=== PATIENT | male | born 1960 | race Caucasian/White ===

== ENCOUNTER 2020-06-29 11:53 | Emergency (ER) | payer OTHER, SELFPAY ==
--- NOTE | ~2020-06-29 | XR_ITS ---
EXAMINATION: XR chest 2V DATE: 06/29/2020 12:12 INDICATION: Chest pain. TECHNIQUE: Frontal and lateral views of the chest were obtained. COMPARISON: CT abdomen and pelvis 01/07/16 FINDINGS: There is mild atelectasis in right lower lung zone. No pleural effusion or pneumothorax. Th e heart size is normal. IMPRESSION: 1. Mild atelectasis in right lower lung zone. Reviewed, dictated and finalized at location A.
--- NOTE | 2020-06-29 11:55 | ECG_ITS ---
Measurements Intervals [place] Rate: 63 P: 62 [place]: 170 QRS: -5 QRSD: 114 T: 34 QT: 358 QTc: 367 Interpretive Statements SINUS RHYTHM INTRAVENTRICULAR CONDUCTION DELAY BORDERLINE ECG Electronically Signed On 06-29-2020 18:05:52 CDT by Addison Lopez D.O.
[2020-06-29 11:56] VITALS: BP 153/108; PULSE 72; RESP 17; TEMP 36.4; O2SAT 99
[2020-06-29 12:03] VITALS: PULSE 67
[2020-06-29 12:21] LABS: Basophils Absolute Auto 0.1 K/mm3 (0.0-0.1); Basophils Percent Auto 0.8 % (0.2-1.2); Eosinophils Absolute Auto 0.3 K/mm3 (0-0.3); Eosinophils Percent Auto 3.4 % (0-4.4); Hematocrit 44.8 % (42.0-52.0); Hemoglobin 15.6 g/dL (14.0-18.0); Immature Granulocyte Absolute 0.03 K/mm3 (0.00-0.031); Immature Granulocyte Percent A 0.4 % (0-0.5); Lymphocytes Absolute Auto 1.81 K/mm3 (0.9-3.2); Mean Corpuscular HGB Conc 34.8 g/dl (32-36); Mean Corpuscular Hemoglobin 31.2 pg (26-34); Mean Corpuscular Volume 89.6 fl (80-100); Mean Platelet Volume 9.9 fl (7.4-10.4); Monocytes Absolute Auto 0.7 K/mm3 (0.1-0.6); Monocytes Percent Auto 8.9 % (2.6-8.5); Neutrophils Percent Auto 63.5 % (45.5-73.1); Platelet Count Result 214 k/mm3 (150-375); White Blood Count 7.9 K/mm3 (4.5-10.0)
[2020-06-29 12:33] LABS: Anion Gap 5 mmol/L (8-16); Blood Urea Nitrogen 19 mg/dL (9-20); Calcium 9.7 mg/dL (8.4-10.2); Carbon Dioxide 32 mmol/L (22-30); Chloride 104 mmol/L (98-107); Estimated CRCL calculation 117 ml/min; Estimated Glomerular Filt Rate > 60; Glucose 98 mg/dL (75-110); Potassium 3.9 mmol/L (3.4-5.0); Sodium 141 mmol/L (137-145)
[2020-06-29 12:35] LABS: Prothrombin Time 12.5 Seconds (11.1-14.7)
[2020-06-29 12:36] LABS: Partial Thromboplastin Time 27.1 SECONDS (22.3-36.8)
[2020-06-29 12:45] LABS: Troponin I < 0.012 ng/mL (0.000-0.034)
--- NOTE | 2020-06-29 12:57 | ED.CHESTPAIN ---
HPI - Chest Pain General Chief Complaint: Chest Pain Stated Complaint: chest pain Time Seen by Provider: 06/29/20 12:02 History of Present Illness HPI narrative: Patient is a 59-year-old male who presents ER with central chest discomfort. It began around 9 AM and felt like acid reflux. He took Tums and omeprazole without relief of his discomfort. It lasts about 30-40 seconds at a time and occasionally feels like a fullness. No associated symptoms. No modification with eating/drinking/exertion. No previous [place]. Related Data Home Medications Medication Instructions Recorded Confirmed lisinopril 20 mg PO DAILY 06/29/20 06/29/20 metoprolol tartrate 25 mg PO DAILY 06/29/20 06/29/20 Allergies Allergy/AdvReac Type Severity Reaction Status Date / Time No Known Allergies Allergy Verified 06/29/20 12:00 Review of Systems Review of Systems: All systems reviewed & are unremarkable except as noted in HPI and below Cardiovascular: Cardiovascular: Reports chest pain, Denies chest pain with activity, Denies radiating jaw, neck or arm pain and Denies dyspnea Respiratory: Respiratory: Denies cough, Denies pain on inspiration and Denies dyspnea Gastrointestinal: Gastrointestinal: Denies abdominal pain, Denies belching, Reports heartburn, Denies nausea and Denies vomiting PMFSH Past Medical History Medical History (Updated 06/29/20 @ 16:18 by Malcolm Amaya MD) Hypertension Surgical History Surgical History (Updated 06/29/20 @ 13:00 by Malcolm Amaya MD) History of bilateral knee replacement History of tonsillectomy Social History Social History (Updated 06/29/20 @ 13:01 by Malcolm Amaya MD) Smoking status: Former smoker Gender identity (if verbalized by the patient): Male Exam Narrative: Exam Narrative: GENERAL: Well-appearing, well-nourished, and in no acute distress. HEAD: Normocephalic, atraumatic. CHEST: Clear to auscultation. No respiratory distress. No discomfort with palpation of the chest. HEART: Regular rate and rhythm. Normal peripheral pulses. ABDOMEN: Soft, nontender, nondistended, normal active bowel sounds. EXTREMITIES: Normal range of motion. No edema. SKIN: Warm, dry, no rash. NEURO: Alert and oriented x3. PSYCH: Normal mood and affect. Course Course Emergency Course: Patient informed of results. Chest pain-free. Had a GI cocktail here that improves some symptoms. Troponin negative x2. Discussed with patient that I recommend follow-up with PCP and an outpatient stress test just for completeness sake. Recommend that if his symptoms are recurring return to the ER. Patient verbalized understanding. Vital Signs Vital signs: Vital Signs Temperature 97.6 F 06/29/20 11:56 Pulse Rate 72 06/29/20 11:56 Respiratory Rate 17 06/29/20 11:56 Blood Pressure 153/108 H 06/29/20 11:56 Pulse Oximetry 99 06/29/20 11:56 Temperature 97.6 F 06/29/20 11:56 Pulse Rate 62 06/29/20 15:13 Respiratory Rate 14 06/29/20 15:13 Blood Pressure 132/80 06/29/20 15:13 Pulse Oximetry 97 06/29/20 15:13 MDM - Chest Pain Lab Data Result diagrams: 06/29/20 12:04 06/29/20 12:04 Labs: Lab Results 06/29/20 06/29/20 06/29/20 Range/Units 12:04 12:04 12:04 WBC 7.9 (4.5-10.0) K/mm3 RBC 5.00 (4.6-6.20) M/mm3 Hgb 15.6 (14.0-18.0) g/dL Hct 44.8 (42.0-52.0) % MCV 89.6 (80-100) fl MCH 31.2 (26-34) pg MCHC 34.8 (32-36) g/dl RDW 13.0 (11.5-14.5) % Plt Count 214 (150-375) k/mm3 MPV 9.9 (7.4-10.4) fl Immature Gran % (Auto) 0.4 (0-0.5) % Neut % (Auto) 63.5 (45.5-73.1) % Lymph % (Auto) 23.0 (18.3-44.2) % [place] % (Auto) 8.9 H (2.6-8.5) % Eos % (Auto) 3.4 (0-4.4) % Baso % (Auto) 0.8 (0.2-1.2) % Lymph # (Auto) 1.81 (0.9-3.2) K/mm3 [place] # (Auto) 0.7 H (0.1-0.6) K/mm3 Eos # (Auto) 0.3 (0-0.3) K/mm3 Baso # (Auto) 0.1 (0.0-0.1) K/mm3 Abs Immat Gran (
[2020-06-29 13:00] VITALS: BP 148/88; PULSE 65; RESP 14; O2SAT 97
[2020-06-29] MEDS: BELLADONNA ALK/PHENOB ELIX 10 ML, MAG HYDROX/ALUMINUM HYD/SIMETH 30 ML, LIDOCAINE HCL 2... PO (13:07)
[2020-06-29 14:50] VITALS: BP 127/91; PULSE 64; RESP 16; O2SAT 100
[2020-06-29 15:13] VITALS: BP 132/80; PULSE 62; RESP 14; O2SAT 97
[2020-06-29 15:18] LABS: Troponin I 0.019 ng/mL (0.000-0.034)
[2020-06-29 16:32] VITALS: BP 147/100; PULSE 64; RESP 17; O2SAT 98
== END 2020-06-29 16:20 | disposition home or self-care (01) ==
PROVIDERS: General Practice; Emergency Provider Emergency Medicine; PCP Family Medicine
DX: R07.9 Chest pain, unspecified (principal); I10 Essential (primary) hypertension; Z96.653 Presence of artificial knee joint, bilateral; Z87.891 Personal history of nicotine dependence; I45.9 Conduction disorder, unspecified
CPT/HCPCS: 36415; 71046; 80048; 84484; 85025; 85610; 85730; 93005; 99284; A9270

== ENCOUNTER → 2020-11-13 08:16 | Outpatient (CLI) | payer OTHER, SELFPAY ==
--- NOTE | ~2020-11-13 | CT_ITS ---
EXAMINATION: CT abdomen pelvis wo con DATE: 11/13/2020 08:43 INDICATION: Calculus of kidney. TECHNIQUE: Computed tomography (CT) of the abdomen and pelvis was performed without intravenous contr ast. Automated exposure control and iterative reconstruction technique were employed. The dose-length product was 1086.23 mGy-cm. COMPARISON: CT abdomen and pelvis 01/07/16 FINDINGS: The visualized portions of the lung bases demonstrate minimal atelectasis. Again seen is a 5 mm nodule in right lower lobe, likely benign. No pleural effusion. The heart size is normal. No per icardial effusion. There is diffuse hepatic steatosis. The gallbladder, spleen, pancreas, and adrenal glands are normal. There are 6 stones in right kidney measuring up to 4 mm. There is an 11 mm stone in left kidney. The prostate is mildly enlarged. There are no dilated loops of bowel. The appendix is normal. There are no pathologically enlarged lymph nodes. There is no free intraperitoneal fluid. Th ere is severe lumbar spondylosis. There are bridging endplate osteophytes at multiple levels in the t horacic spine, consistent with diffuse idiopathic skeletal hyperostosis (DISH). IMPRESSION: 1. Bilateral nonobstructing kidney stones. Reviewed, dictated and finalized at location A. [employer]
--- NOTE | ~2020-11-13 | XR_ITS ---
EXAMINATION: XR abdomen/kub 1V DATE: 11/13/2020 08:43 INDICATION: Calculus of kidney. TECHNIQUE: A supine view of the abdomen on 2 radiographs was obtained. COMPARISON: CT abdomen and pelvis 11/13/2020 FINDINGS: There are no dilated loops of bowel. There is an 11 mm stone in left kidney. Right kidney i s obscured by bowel. There are vascular calcifications in the pelvis. IMPRESSION: 1. 11 mm left kidney stone. Reviewed, dictated and finalized at location A. TER'S ASSISTANT IMPRESSION: 1. 11 mm left kidney stone.
== END ==
PROVIDERS: Visit Provider Urology
DX: N20.0 Calculus of kidney (principal)
CPT/HCPCS: 74018; 74176

== ENCOUNTER 2020-12-05 13:03 | Outpatient (CLI) | payer OTHER, SELFPAY ==
[2020-12-05 14:04] LABS: INR 0.9; Prothrombin Time 12.2 Seconds (11.1-14.7)
[2020-12-05 14:05] LABS: Partial Thromboplastin Time 27.1 SECONDS (22.3-36.8)
[2020-12-05 14:06] LABS: Anion Gap 6 mmol/L (8-16); Blood Urea Nitrogen 15 mg/dL (9-20); Calcium 9.1 mg/dL (8.4-10.2); Carbon Dioxide 33 mmol/L (22-30); Chloride 102 mmol/L (98-107); Estimated Glomerular Filt Rate > 60; Glucose 96 mg/dL (75-110); Sodium 141 mmol/L (137-145)
== END 2020-12-05 13:04 | disposition home or self-care (01) ==
PROVIDERS: Anesthesiology; PCP Family Medicine; Visit Provider Urology
DX: N20.0 Calculus of kidney (principal); Z79.899 Other long term (current) drug therapy; Z01.818 Encounter for other preprocedural examination
CPT/HCPCS: 36415; 80048; 85610; 85730; 87086

== ENCOUNTER → 2020-12-10 00:35 | Outpatient (CLI) | payer OTHER, SELFPAY ==
[2020-12-11 00:53] LABS: SARS-CoV-2 RNA PCR Negative
== END ==
PROVIDERS: PCP Family Medicine; Visit Provider Urology
DX: Z01.812 Encounter for preprocedural laboratory examination (principal); Z20.822 Contact with and (suspected) exposure to COVID-19
CPT/HCPCS: C9803; U0003; U0005

== ENCOUNTER 2020-12-13 04:21 | Day surgery (SDC) | payer OTHER, SELFPAY ==
[2020-12-05 12:26] VITALS: BMI 39.0
[2020-12-13] VITALS (18 sets, daily range): BP systolic 139–189; BP diastolic 85–118; PULSE 72–108; RESP 16–22; TEMP 36.4–36.6; O2SAT 95–100; BMI 39.2
--- NOTE | ~2020-12-13 | XR_ITS ---
EXAMINATION: XR abdomen/kub 1V EXAM DATE: 12/13/2020 13:29 INDICATION: S/P ESWL, L stent placement. Abdominal pain. TECHNIQUE: Frontal projection(s) of the abdomen for interpretation. Comparison is made to prior exami nation from earlier same date. FINDINGS: Patient slightly rotated. There is been interval insertion of a left-sided double-J uretera l stent overlying expected position. Again there is approximately 1 cm left inferior calyceal stone. Nonobstructive bowel gas pattern. IMPRESSION: Left nephrolithiasis. Stent overlying expected position. Reviewed, dictated and finalized at location A.
--- NOTE | ~2020-12-13 | XR_ITS ---
EXAMINATION: XR abdomen/kub 1V EXAM DATE: 12/13/2020 07:50 INDICATION: For left-sided lithotripsy. TECHNIQUE: Frontal projection of the upper abdomen, frontal projection lower abdomen/pelvis for inter pretation. Comparison is made to prior examination from 11/13/2020. FINDINGS: Approximately 1 cm dense left inferior calyceal stone reidentified. No other suspicious roro cific densities. Nonobstructive bowel gas pattern. Large thoracic and lumbar bridging endplate osteop hytes. IMPRESSION: Left nephrolithiasis. Reviewed, dictated and finalized at location A. IMPRESSION: Left nephrolithiasis.
--- NOTE | 2020-12-13 07:57 | WPDANESEPPF ---
Anes - Initial Pre Proc Eval Procedure: Operation Date: 12/13/20 09:30 Proposed Procedures p Cystoscopy, Left Retrograde Pyelogram, Left Stent Placement - Rick Rodriguze MD s Left Renal Extracorporeal Shock Wave Lithotripsy - Rick Rodriguez MD Date/Time: 12/13/20 07:57 Surgeon: Rick Rodriguez MD Pre Op Diagnosis: Left Renal Stone Patient Data Age: 60 Gender: M Height: 1.8 m Weight: 127 kg Allergies Allergy/AdvReac Type Severity Reaction Status Date / Time No Known Allergies Allergy Verified 12/13/20 07:56 Home Medications Medication Instructions Recorded Confirmed Type metoprolol tartrate 25 mg PO DAILY 06/29/20 12/05/20 History glucos sul [id number]-Mn 1 cap PO DAILY 12/05/20 12/05/20 History [Glucosamine Chondroitin] ibuprofen 600 mg PO TID PRN 12/05/20 12/05/20 History lisinopril-hydrochlorothiazide 1 tablet PO DAILY 12/05/20 12/05/20 History potassium citrate 10 meq PO DAILY 12/05/20 12/05/20 History Patient hx anesthesia problems: none Family hx anesthesia problems: none PMFSH Past Medical History Medical History (Updated 12/13/20 @ 08:08 by Pedrito Montana MD) Hypertension Obesity Osteoarthritis Surgical History Surgical History (Updated 06/29/20 @ 13:00 by Malcolm Amaya MD) History of bilateral knee replacement History of tonsillectomy Social History Social History (Updated 06/29/20 @ 13:01 by Malcolm Amaya MD) Years smoked: 10 Smoking status: Former smoker Smoking end date: 09/13/07 Alcohol intake: current Drinks per week: 2 Substance use: never Substance use type: does not use Living arrangements: with family Gender identity (if verbalized by the patient): Male Spiritual care concerns: No Anes - Eval Final PreProcedure Day of Procedure 12/13/20 07:57 Patient weight: obese Heart: regular rate and rhythm Lungs: clear to auscultation and normal air movement Airway: Mallampati scale class II Neurological: alert and oriented Last oral intake: >/= 8 hours ASA classification: III Emergent: no Anesthetic plan: proceed Anesthesia type and monitoring: general LMA Informed Consent: The patient's anesthetic plan and its attendant risks and benefits were discussed with the patient/family/POA. Questions were solicited and answers provided to the satisfaction of the patient/family/POA.
--- NOTE | 2020-12-13 08:12 | SUR.PREOP ---
NOTIFIED DR TOTH THAT PT DID NOT TAKE HIS METOPROL FOR 36 HOURS. TAKES AT HS. LAST DOSE WAS 12/11/20 AT HS.
--- NOTE | 2020-12-13 08:15 | WPDHPUPDATE1 ---
History and Physical Update Update Date/Time: 12/13/20 08:15 History and Physical has been reviewed, including an updated exam of the patient. There are NO changes in the patient's condition. Risks, benefits, and alternatives have been discussed and questions answered. Patient agrees to proceed with procedure. Proceed with cystoscopy, left retrograde pyelogram, left ureteral stent placement, left renal ESWL
[2020-12-13] MEDS: LACTATED RINGERS 1,000 ML 30 ML IV CONT ×2 (08:24→13:00)
[2020-12-13] MEDS: ceFAZolin 2 GM/D5W 50 ML 2 GM/50 ML BAG IVPB (09:21)
--- NOTE | 2020-12-13 10:04 | P.OP_ITS ---
Procedure Note - Detailed Date of procedure: 12/13/20 Pre-op diagnosis: Left Renal Stone Post-op diagnosis: same Procedure performed: Cystoscopy, left retrograde pyelogram, left ureteral stent placement 4.8 Swedish contour, left renal ESWL 12 mm stone Description of procedure: Patient is taken the operative suite and correctly identified. Once anesthesia was obtained he was prepped draped usual sterile fashion. Sixteen Swedish flexible scope was inserted in bladder in direct vision. There were no tumors noted. The left ureteral orifice was cannulated with a guidewire. A [place] catheter was passed over the wire. Pyelogram was then performed. It was noted that patient has a lower pole stone with a fairly long narrow infundibulum to it. We then placed a tenXer wire through the [place] catheter. 4.8 Swedish contour stent was then placed with the proximal end coiled in the renal pelvis and the distal end in the bladder. Patient was then reposition. Two thousand five hundred shocks were given to the stone. Patient tolerated procedure well without complications and was taken recovery room stable condition. If the patient fails to pass any fragments then he may benefit most likely from a percutaneous nephrolithotomy given the long narrow infundibulum of the lower pole. Anesthesia: GLMA Surgeon: Rick Rodriguez MD Drains: Yes Packing: No Pathology: none sent Complications: No immediate complications Condition: stable
[2020-12-13] MEDS: fentaNYL CITRATE INJ (*CRX) 100 MCG/2 ML VIAL 25 MCG IV PUSH ×7 (10:34→13:28)
[2020-12-13] MEDS: oxyCODONE HCL (*CRX) 5 MG TAB IR PO (11:20)
--- NOTE | 2020-12-13 11:56 | SUR.PHASEII ---
1130- Call to Dr. Montana for patient's elevated BP 173/100 with HR in 70's. Patient with known HTN. No answer at this time. Will continue to monitor. 1155- Second call to Dr. Montana to obtain orders and notify him of patient's BP that remains elevated 177/106 with HR 74. No answer from Dr. Montana at this time.
--- NOTE | 2020-12-13 11:59 | SUR.PHASEII ---
1158- Made Dr. Duran aware of patient's elevated BP 177/106 with HR 74 with known HTN. No medications taken today because patient takes his antihypertensives at night. Orders obtained for Labetolol 5MG IVP.
[2020-12-13] MEDS: LABETALOL HCL INJ 100 MG/20 ML VIAL IV PUSH (12:08)
[2020-12-13] MEDS: OXYBUTYNIN CHLORIDE 5 MG TABLET PO (12:40)
--- NOTE | 2020-12-13 13:15 | SUR.PHASEII ---
1315- Dr. Rodriguez rounded on patient in outpatient recovery room 15 and reported to him patient with 51mL's of urine in bladder noted on bladder scan. Patient remains in pain and just given 25MCG of fentanyl IVP. Per Dr. Rodriguez place orders for KUB at this time.
[2020-12-13] MEDS: HYDROmorphone HCL INJ (*CRX) 1 MG/ML SYR 0.25 MG IV PUSH ×8 (13:40→15:06)
--- NOTE | 2020-12-13 15:14 | SUR.PHASEII ---
1513- Call to Dr. Duran to obtain additional orders for pain control and made aware patient's BP remains elevated with his pain. Patient has received max dosing of dilaudid 2MG IVP and 175MCG Fentanyl. Orders received for 2.5MG IVP valium once and Demerol 50MG IVP once if patient remains in pain. Will continue to monitor.
[2020-12-13] MEDS: diazePAM INJ (*CRX) 10 MG/2 ML SYRINGE 2.5 MG IV PUSH (15:24)
--- NOTE | 2020-12-13 15:35 | SUR.PHASEII ---
1535- Call to Dr. Rodriguez to update him on patient's status at this time. Patient remaining with pain 6/10 after pain medications and IVP Valium 2.5MG. Awaiting call back at this time. 1544- 30MG IVP Toradol orders obtained from Dr. Rodriguez at this time.
[2020-12-13] MEDS: KETOROLAC 30 MG/ML VIAL (*BKC) IV PUSH (15:47)
--- NOTE | 2020-12-13 16:18 | SUR.PHASEII ---
1618- Patient assisted with ambulation to restroom at this time.
== END 2020-12-13 16:40 | disposition home or self-care (01) ==
PROVIDERS: PCP Family Medicine; Visit Provider Urology
PROC: (CPT 52352; principal; 2020-12-13 09:30)
PROC: (CPT 50590; 2020-12-13 09:30)
DX: N20.0 Calculus of kidney (principal); M19.90 Unspecified osteoarthritis, unspecified site; Z87.891 Personal history of nicotine dependence; E66.9 Obesity, unspecified; Z68.39 Body mass index [BMI] 39.0-39.9, adult; I10 Essential (primary) hypertension
CPT/HCPCS: 50590; 52332; 36415; 74018; 80048; 85610; 85730; 87086; A9270; C1758; C1769; C2617; C9803; J0690; J1100; J1170; J1885; J2405; J2704; J3010; J3360; J7030; J7120; Q9966; U0003; U0005

== ENCOUNTER 2020-12-13 22:10 | Observation (INO) | payer OTHER, SELFPAY ==
[2020-12-13] VITALS (13 sets, daily range): BP systolic 159–162; BP diastolic 103–110; PULSE 108–139; RESP 19–25; TEMP 36.8; O2SAT 93–100
--- NOTE | 2020-12-13 22:32 | ED.ABDPAIN ---
HPI - Abdominal Pain General Chief Complaint: Abdominal Pain Stated Complaint: llq abd pain Time Seen by Provider: 12/13/20 22:26 Source: patient, family and RN notes reviewed Limitations: no limitations History of Present Illness HPI narrative: Patient is 60 years old white male presented with severe pain left abdomen just below left thoracic cage. Started immediately after having lithotripsy at 9 AM today, was in severe pain and stayed until 5 PM to control his pain. Patient got discharged at 5 PM, back to the emergency room 4 hours later because could not tolerate the pain, although been discharged on hydrocodone. Patient did not urinate since leaving the hospital. Related Data Home Medications Medication Instructions Recorded Confirmed metoprolol tartrate 25 mg PO DAILY 06/29/20 12/13/20 Glucosamine Chondroitin 1 cap PO DAILY 12/05/20 12/13/20 ibuprofen 600 mg PO TID PRN 12/05/20 12/13/20 lisinopril-hydrochlorothiazide 1 tablet PO DAILY 12/05/20 12/13/20 potassium citrate 10 meq PO DAILY 12/05/20 12/13/20 Allergies Allergy/AdvReac Type Severity Reaction Status Date / Time No Known Allergies Allergy Verified 12/13/20 07:56 Review of Systems Review of Systems: Narrative: CONSTITUTIONAL: Denies fever, chills, or sweats. EYES: Denies visual changes, redness, or discharge. ENT: Denies rhinorrhea, congestion, sore throat, or otalgia. CARDIOVASCULAR: Denies chest pain, palpitations, or edema. RESPIRATORY: Denies cough or dyspnea. GASTROINTESTINAL: Denies abdominal pain, nausea, vomiting, or diarrhea. GENITOURINARY: Denies dysuria or hematuria. SKIN: Denies rash or itching. MUSCULOSKELETAL: Denies back pain, joint pain, or myalgia. NEUROLOGIC: Denies headache, numbness, or weakness. PSYCHIATRIC: Denies anxiety or depression. [facility] Past Medical History Medical History Hypertension Obesity Osteoarthritis Surgical History Surgical History History of bilateral knee replacement History of tonsillectomy Social History Social History Years smoked: 10 Smoking status: Former smoker Smoking end date: 09/13/07 Alcohol intake: current Drinks per week: 2 Substance use: never Substance use type: does not use Gender identity (if verbalized by the patient): Male Spiritual care concerns: No Course Consultations Consultation #1: dr [email or web address] Accepted patient admission, recommended not to get any imaging or any labs. Patient had x-ray post lithotripsy. Date: 12/13/20 Time: 23:04 Vital Signs Vital signs: Vital Signs Temperature 36.8 C 12/13/20 22:16 Pulse Rate 114 H 12/13/20 22:16 Respiratory Rate 22 H 12/13/20 22:16 Blood Pressure 159/103 H 12/13/20 22:16 Pulse Oximetry 97 12/13/20 22:16 Temperature 36.8 C 12/13/20 22:16 Pulse Rate 114 H 12/13/20 22:16 Respiratory Rate 22 H 12/13/20 22:16 Blood Pressure 159/103 H 12/13/20 22:16 Pulse Oximetry 97 12/13/20 22:16 Discharge Plan Discharge Clinical Impression: Kidney stone on left side, Status post laser lithotripsy of ureteral calculus Patient Disposition: Still a Patient Condition: Stable Prescriptions: No Action metoprolol tartrate 25 mg Tablet 25 mg PO DAILY RF: 0 potassium citrate 10 mEq (1,080 mg) tablet extended release 10 meq PO DAILY RF: 0 ibuprofen 200 mg Tablet 600 mg PO TID PRN (Reason: Pain) RF: 0 Hold Instructions: Resume on 12/16/20. lisinopril-hydrochlorothiazide 10-12.5 mg tablet 1 tablet PO DAILY RF: 0 Glucosamine Chondroitin 550-30-1 mg Capsule 1 cap PO DAILY RF: 0 Follow-up/Referrals: Bebeto,Deacon Mattson MD [Primary Care Provider] -
[2020-12-13 22:47] LABS: Basophils Percent Auto 0.1 % (0.2-1.2); Hematocrit 41.8 % (42.0-52.0); Hemoglobin 14.1 g/dL (14.0-18.0); Immature Granulocyte Absolute 0.05 K/mm3 (0.00-0.031); Immature Granulocyte Percent A 0.4 % (0-0.5); Lymphocytes Absolute Auto 0.59 K/mm3 (0.9-3.2); Lymphocytes Percent Auto 4.2 % (18.3-44.2); Mean Corpuscular HGB Conc 33.7 g/dl (32-36); Mean Corpuscular Hemoglobin 30.2 pg (26-34); Mean Corpuscular Volume 89.5 fl (80-100); Mean Platelet Volume 9.6 fl (7.4-10.4); Monocytes Absolute Auto 1.1 K/mm3 (0.1-0.6); Monocytes Percent Auto 7.6 % (2.6-8.5); Neutrophils Absolute Auto 12.5 K/mm3 (1.3-6.7); Neutrophils Percent Auto 87.7 % (45.5-73.1); Platelet Count Result 235 k/mm3 (150-375); Red Blood Count 4.67 M/mm3 (4.6-6.20); Red Cell Distribution Width 13.1 % (11.5-14.5); White Blood Count 14.2 K/mm3 (4.5-10.0)
[2020-12-13] MEDS: ONDANSETRON INJ 4 MG/2 ML VIAL IV PUSH (23:14)
[2020-12-13] MEDS: HYDROmorphone HCL INJ (*CRX) 1 MG/ML SYR 0.5 MG IV PUSH ×2 (23:15→23:58)
[2020-12-13 23:57] LABS: Alanine Aminotransferase 21 U/L (4-50); Alkaline Phosphatase 77 U/L (38-126); Anion Gap 9 mmol/L (8-16); Aspartate Amino Transferase 24 U/L (17-59); Bilirubin,Total 0.5 mg/dL (0.2-1.3); Blood Urea Nitrogen 18 mg/dL (9-20); Calcium 8.8 mg/dL (8.4-10.2); Carbon Dioxide 23 mmol/L (22-30); Chloride 102 mmol/L (98-107); Estimated CRCL calculation 81 ml/min; Estimated Glomerular Filt Rate > 60; Glucose 196 mg/dL (75-110); Lipase 79 U/L (23-300); Potassium 4.3 mmol/L (3.4-5.0); Sodium 134 mmol/L (137-145)
[2020-12-14] VITALS: PULSE 133; RESP 20; O2SAT 97
[2020-12-14 00:01] VITALS: BP 139/99; PULSE 130; RESP 20; O2SAT 97
[2020-12-14 00:03] VITALS: BP 137/97; PULSE 131; RESP 15; O2SAT 97
[2020-12-14 00:12] LABS: Add Urine Microscopic? YES; Appearance Urine Cloudy (Clear); Bilirubin Urine Negative (Negative); Blood Urine 3+ (Negative); Color Urine Brown (Yellow); Glucose Urine UA 2+ mg/dL (Negative); Ketones Urine Negative (Negative); Leukocyte Esterase Ur Negative LEU/UL (Negative); Mucus Urine Heavy /lpf; Nitrate Urine Negative (Negative); Protein Urine 2+ mg/dL (Negative); RBC Urine >75 /hpf (0-2); Specific Grav Ur 1.031 (1.001-1.035); Urobilinogen Urine Negative mg/dL (<2.0); WBC Urine 16-20 /hpf
--- NOTE | 2020-12-14 06:24 | ADMGEN ---
This patient, Ifeoma Martinez, was admitted to 3 [facility] [place] [facility] Surg Room 327-01. Patient/family oriented to hospital policies and general routines including ID bracelet, bed and alarms, visiting hours, pain management, procedures, bathroom and other care routines, personal items, smoking policy, room service/diet, and visiting hours. Information on how to activate the Rapid Response Team has been discussed. Patient/Family are encouraged to report perceived risks to care and to ask questions if they do not understand what they are told or what they should do. Patient arrived at 0115. He stated that his pain had improved considerably since the ER though he continued to complain of upper L abd pain. His memory was intact and he gave a good health history and confirmed his medications from memory. He has not ambulated since coming to the hospital r/t severe pain with movement. Hospital policy, call light use, pain reporting, and importance of calling for assistance were all discussed and questions answered.
[2020-12-14 08:00] VITALS: PULSE 107; RESP 18; O2SAT 94
[2020-12-14] MEDS: HYDROmorphone HCL INJ (*CRX) 1 MG/ML SYR 0.5 MG IV PUSH ×2 (08:22→08:45)
[2020-12-14 08:23] VITALS: BMI 40.7
[2020-12-14 10:12] VITALS: PULSE 107; RESP 18; O2SAT 94
--- NOTE | 2020-12-14 11:15 | PM.IMHP ---
H&P: HPI History of Present Illness Date/Time: 12/14/20 11:15 Chief Complaint: left flank pain Narrative: 61M s/p left stent and ESWL yesterday by dr montes. had a lot of pain postop but was able to be controlled and he was discharged. he came back to ED around 2300 last night with recurrent severe pain and was admitted for pain control. pain this morning is better. KUb yesterday showed stent in appropriate position with persistent lower pole calcifications but this was immediately after treatment. Review of Systems Review of Systems: All systems reviewed & are unremarkable except as noted in HPI and below PMFSH Past Medical History Medical History Hypertension Obesity Osteoarthritis Surgical History Surgical History History of bilateral knee replacement History of tonsillectomy Social History Social History Years smoked: 10 Smoking status: Former smoker Alcohol intake: current Drinks per week: 2 Substance use: never Substance use type: does not use Gender identity (if verbalized by the patient): Male Spiritual care concerns: No Meds Home Medications and Allergies Home Medications Medication Instructions Recorded Confirmed Type metoprolol tartrate 25 mg PO DAILY 06/29/20 12/14/20 History Glucosamine Chondroitin 1 cap PO DAILY 12/05/20 12/14/20 History ibuprofen 600 mg PO TID PRN 12/05/20 12/14/20 History lisinopril-hydrochlorothiazide 1 tablet PO DAILY 12/05/20 12/14/20 History potassium citrate 10 meq PO DAILY 12/05/20 12/14/20 History Allergies Allergy/AdvReac Type Severity Reaction Status Date / Time No Known Allergies Allergy Verified 12/13/20 07:56 Vital Signs Vital Signs - 24 hr 12/13/20 22:15 12/13/20 22:16 12/13/20 22:30 Temperature 36.8 C Pulse Rate 122 H 116 H 108 H Respiratory Rate 20 22 H 24 H Blood Pressure 159/103 H Pulse Oximetry 97 97 98 12/13/20 22:45 12/13/20 22:46 12/13/20 23:00 Temperature Pulse Rate 112 H 114 H 111 H Respiratory Rate 23 H 23 H 23 H Blood Pressure 162/110 H Pulse Oximetry 95 96 95 12/13/20 23:01 12/13/20 23:15 12/13/20 23:16 Temperature Pulse Rate 126 H 115 H 117 H Respiratory Rate 21 H 25 H 25 H Blood Pressure Pulse Oximetry 97 96 96 12/13/20 23:30 12/13/20 23:31 12/13/20 23:45 Temperature Pulse Rate 117 H 118 H 128 H Respiratory Rate 19 19 24 H Blood Pressure Pulse Oximetry 93 93 98 12/13/20 23:47 12/14/20 00:00 12/14/20 00:01 Temperature Pulse Rate 139 H 133 H 130 H Respiratory Rate 20 20 Blood Pressure 139/99 H Pulse Oximetry 100 97 97 12/14/20 00:03 12/14/20 08:00 12/14/20 10:12 Temperature Pulse Rate 131 H 107 H 107 H Respiratory Rate 15 18 18 Blood Pressure 137/97 H Pulse Oximetry 97 94 94 Exam Const: General: cooperative and comfortable HENMT: Head: normal to inspection, normocephalic and atraumatic Eyes: General: appearance normal, both eyes and all related structures Visual Key: normal visual key by confrontation Resp: Effort & Inspection: normal respiratory effort and able to speak in complete sentences : Male General Exam: Yes other (left hydrocele, non tender) H&P: Results Labs Labs: Short CBC 12/13/20 Range/Units 22:42 WBC 14.2 H (4.5-10.0) K/mm3 Hgb 14.1 (14.0-18.0) g/dL Hct 41.8 L (42.0-52.0) % Plt Count 235 (150-375) k/mm3 BMP 12/13/20 23:40 Sodium 134 L Potassium 4.3 Chloride 102 Carbon Dioxide 23 BUN 18 Creatinine 1.20 Glucose 196 H Calcium 8.8 Liver Function 12/13/20 Range/Units 23:40 Total Bilirubin 0.5 (0.2-1.3) mg/dL AST 24 (17-59) U/L ALT 21 (4-50) U/L Alkaline Phosphatase 77 (38-126) U/L Albumin 4.0 (3.5-5.1) g/dL Urine 12/13/20 Range/Units 23:50 Urine Color Br
[2020-12-14] MEDS: TAMSULOSIN HCL 0.4 MG CAPSULE PO (12:24)
[2020-12-14 14:00] VITALS: BP 144/87; PULSE 90; RESP 18; TEMP 36.8; O2SAT 95
--- NOTE | 2020-12-14 17:58 | PC.NURSE ---
1100 BLADDER SCANNED PT PT STATES HE FEELS LIKE HE HAS TO GO, 30CC NOTED
== END 2020-12-14 17:10 | disposition home or self-care (01) ==
LOC: ANHED 23:05 → ANH3MEDSUR 12-14 00:28
PROVIDERS: Admitting Provider Urology; Emergency Provider Emergency Medicine; PCP Family Medicine; Visit Provider Urology
DX: N20.0 Calculus of kidney (principal); R10.9 Unspecified abdominal pain; Z87.442 Personal history of urinary calculi; Z96.653 Presence of artificial knee joint, bilateral; Z87.891 Personal history of nicotine dependence
CPT/HCPCS: 36415; 74018; 80048; 80053; 81001; 83690; 85025; 85610; 85730; 87086; 96374; 96375; 96376; 99285; A9270; C1758; C1769; C2617; C9803; G0378; J0131; J0690; J1100; J1170; J1885; J2405; J2704; J3010; J3360; J7030; J7120; Q9966; U0003; U0005

== ENCOUNTER 2020-12-15 11:52 | Inpatient (IN) | payer OTHER, SELFPAY ==
[2020-12-15] VITALS (54 sets, daily range): BP systolic 88–124; BP diastolic 38–78; PULSE 72–122; RESP 14–26; TEMP 35.5–37.2; O2SAT 87–98; BMI 40.9
--- NOTE | ~2020-12-15 | XR_ITS ---
XR chest 2V DATE: 12/15/2020 13:10 INDICATION: Low oxygen saturation. History of hypertension. Recent lithotripsy. Low back pain. TECHNIQUE: PA and lateral views COMPARISON: None FINDINGS: Prominent bilateral lower lung atelectasis and possible infiltrates. There are relatively l ow lung volumes compared to 06/29/2020. Normal heart size. No hilar or mediastinal enlargement. No pleural effusion or pulmonary vascular con gestion or pneumothorax. Diffuse idiopathic skeletal hyperostosis of the thoracic spine. IMPRESSION: Prominent bilateral lower lung atelectasis and possible infiltrate Reviewed, dictated and finalized at location A.
--- NOTE | ~2020-12-15 | CT_ITS ---
EXAMINATION: CT abdomen pelvis wo con DATE: 12/15/2020 14:40 INDICATION: Abdominal pain. TECHNIQUE: Computed tomography (CT) of the abdomen and pelvis was performed without intravenous contr ast. Automated exposure control and iterative reconstruction technique were employed. The dose-length product was 1573.09 mGy-cm. COMPARISON: CT abdomen and pelvis 12/10/2020 FINDINGS: The visualized portions of the lung bases demonstrate trace right and small left pleural ef fusions. There are airspace opacities in the lungs with a dependent predominance, likely atelectasis. The heart size is normal. There are coronary artery calcifications. No pericardial effusion. Partial ly visualized is right-sided gynecomastia. There is diffuse hepatic steatosis. The gallbladder and sp martinez are normal. There is a punctate calcification in the pancreas. The adrenal glands are normal. Th ere are approximately 6 stones in right kidney measuring up to 3 mm. There is a large acute subcapsul ar hematoma involving left kidney. There is a smaller volume of acute hematoma in the bilateral retro peritoneum and extraperitoneal pelvis, left worse than right. There is a small volume of hematoma in left paracolic gutter and in the left inguinal hernia. There are at least 5 stones and/or clusters of stones in left kidney measuring up to 11 mm. There is a left internal ureteral stent in expected pos ition. There is a punctate stone adjacent to the stent proximally in the renal pelvis. The prostate i s mildly enlarged. There are no pathologically enlarged lymph nodes. There is severe lumbar spondylos is. There are bridging endplate osteophytes at multiple levels in the thoracic spine, consistent with diffuse idiopathic skeletal hyperostosis (DISH). IMPRESSION: 1. Large acute subcapsular hematoma of left kidney with extension into the surrounding retroperitoneu m. 2. Bilateral obstructing kidney stones. Left internal ureteral stent in expected position. Reviewed, dictated and finalized at location A. IMPRESSION: 1. Large acute subcapsular hematoma of left kidney with extension into the surr ounding retroperitoneum. 2. Bilateral obstructing kidney stones. Left internal ureteral stent in expecte d position.
--- NOTE | ~2020-12-15 | XR_ITS ---
EXAMINATION: XR chest 1V portable DATE: 12/16/2020 05:44 INDICATION: Oxygen desaturation. TECHNIQUE: A single frontal view of the chest was obtained. COMPARISON: Chest 2 views 12/15/2020, CT abdomen and pelvis 12/15/2020 FINDINGS: The lung volumes are small. There are airspace opacities in the lower lung zones, likely at electasis. No pleural effusion or pneumothorax. The heart size is normal. IMPRESSION: 1. Small lung volumes with stable atelectasis in the lower lung zones. Reviewed, dictated and finalized at location A.
--- NOTE | 2020-12-15 12:15 | ECG_ITS ---
Measurements Intervals [place] Rate: 80 P: -5 [place]: 117 QRS: 8 QRSD: 115 T: 31 QT: 396 QTc: 457 Interpretive Statements SINUS RHYTHM WITH SHORT [place] INTERVAL INTRAVENTRICULAR CONDUCTION DELAY EARLY PRECORDIAL R/S TRANSITION BORDERLINE ST-T WAVE ABNORMALITY- INF/HIGH LAT LEADS BORDERLINE ECG Electronically Signed On 12-15-2020 12:44:37 CDT by Addison Lopez D.O.
[2020-12-15 12:32] LABS: Basophils Percent Auto 0.2 % (0.2-1.2); Eosinophils Absolute Auto 0.1 K/mm3 (0-0.3); Eosinophils Percent Auto 0.3 % (0-4.4); Hematocrit 25.9 % (42.0-52.0); Hemoglobin 9.1 g/dL (14.0-18.0); Immature Granulocyte Absolute 0.07 K/mm3 (0.00-0.031); Immature Granulocyte Percent A 0.5 % (0-0.5); Lymphocytes Absolute Auto 1.31 K/mm3 (0.9-3.2); Lymphocytes Percent Auto 8.7 % (18.3-44.2); Mean Corpuscular HGB Conc 35.1 g/dl (32-36); Mean Corpuscular Volume 88.1 fl (80-100); Mean Platelet Volume 9.8 fl (7.4-10.4); Monocytes Absolute Auto 1.4 K/mm3 (0.1-0.6); Monocytes Percent Auto 9.5 % (2.6-8.5); Neutrophils Absolute Auto 12.2 K/mm3 (1.3-6.7); Neutrophils Percent Auto 80.8 % (45.5-73.1); Platelet Count Result 229 k/mm3 (150-375); Red Blood Count 2.94 M/mm3 (4.6-6.20); Red Cell Distribution Width 13.4 % (11.5-14.5); White Blood Count 15.1 K/mm3 (4.5-10.0)
[2020-12-15 12:44] LABS: Alanine Aminotransferase 15 U/L (4-50); Albumin Level 3.3 g/dL (3.5-5.1); Alkaline Phosphatase 54 U/L (38-126); Anion Gap 7 mmol/L (8-16); Aspartate Amino Transferase 22 U/L (17-59); Bilirubin,Total 0.5 mg/dL (0.2-1.3); Blood Urea Nitrogen 50 mg/dL (9-20); Calcium 7.8 mg/dL (8.4-10.2); Carbon Dioxide 26 mmol/L (22-30); Chloride 93 mmol/L (98-107); Estimated CRCL calculation 27 ml/min; Estimated Glomerular Filt Rate 17; Glucose 112 mg/dL (75-110); Potassium 3.8 mmol/L (3.4-5.0); Sodium 126 mmol/L (137-145)
[2020-12-15 12:55] LABS: Troponin I 0.032 ng/mL (0.000-0.034)
[2020-12-15 13:04] LABS: Lactic Acid Reflex 1.5 mmol/L (0.7-2.1)
[2020-12-15 13:18] LABS: NT Pro B Type Natriuretic Pept 285 PG/ML (5-100)
[2020-12-15] MEDS: LACTATED RINGERS 1,000 ML 999 ML IV CONT ×3 (13:22→18:42)
[2020-12-15 14:37] LABS: Immature Reticulocyte Fraction 23.9 % (3.0-15.9); Reticulocyte Hemoglobin Conten 32.2 pg (28.2-35.7); Reticulocyte Percent 2.38 % (0.7-4.3); Reticulocytes Absolute 0.07 B/L (32.2-175.7)
--- NOTE | 2020-12-15 14:55 | ED.RECABL ---
HPI - Recheck/Abnormal Lab/Rx General Chief Complaint: Recheck/Abnormal Lab/Rx Stated Complaint: low blood pressure Time Seen by Provider: 12/15/20 12:17 Source: patient and family Mode of arrival: ambulatory Limitations: no limitations History of Present Illness HPI narrative: 60-year-old male Hypertension and of kidney stones He was here Wednesday for lithotripsy and stent placement He had to return to the hospital Wednesday night and was hospitalized until yesterday evening due to persisting pain Today he felt weak and dizzy and checked his blood pressure at home and it was low; typically his blood pressure runs high and he takes blood pressure medication He has not had a fever His urine remains dark and discolored but not too different than preoperatively No change in his stool, no vomiting Related Data Home Medications Medication Instructions Recorded Confirmed metoprolol tartrate 25 mg PO DAILY 06/29/20 12/14/20 Glucosamine Chondroitin 1 cap PO DAILY 12/05/20 12/14/20 ibuprofen 600 mg PO TID PRN 12/05/20 12/14/20 lisinopril-hydrochlorothiazide 1 tablet PO DAILY 12/05/20 12/14/20 potassium citrate 10 meq PO DAILY 12/05/20 12/14/20 Allergies Allergy/AdvReac Type Severity Reaction Status Date / Time No Known Allergies Allergy Verified 12/15/20 12:05 Review of Systems Review of Systems: All systems reviewed & are unremarkable except as noted in HPI and below Constitutional: Constitutional: Reports no additional constitutional complaints, Reports chills, Reports fever(s) and Denies headache(s) Eyes: Eyes: Reports no additional eye complaints and Denies change in vision ENT: Denies headache(s) and Denies sore throat Cardiovascular: Cardiovascular: Denies chest pain and Denies dyspnea Respiratory: Respiratory: Denies cough and Denies dyspnea Gastrointestinal: Gastrointestinal: Reports abdominal pain, Denies diarrhea and Denies vomiting Genitourinary: Genitourinary: Reports oliguria, Reports dysuria and Denies urinary frequency Musculoskeletal: Musculoskeletal: Reports myalgias, Denies deformity, Denies arthralgias, Denies joint swelling and Denies numbness Comments: Foot pains Integumentary/Breasts: Skin/Breast: Denies rash and Denies wounds Neurologic: Denies headache(s), Denies focal weakness and Denies numbness Psychiatric: Psychiatric: Reports no additional psychiatric complaints Endocrine: Endocrine: Reports no additional endocrine complaints Hematologic/Lymphatic: Hematologic/Lymphatic: Reports no additional hematologic/lymphatic complaints Allergic/Immunologic: Allergic/Immunologic: Reports no additional allergic/immunologic complaints [facility] Past Medical History Medical History Hypertension Obesity Osteoarthritis Surgical History Surgical History History of bilateral knee replacement History of tonsillectomy Social History Social History Years smoked: 10 Smoking status: Former smoker Alcohol intake: current Drinks per week: 2 Substance use: never Substance use type: does not use Gender identity (if verbalized by the patient): Male Spiritual care concerns: No Exam Const: General: cooperative and no acute distress Orientation/consciousness: patient oriented x3 (alert) HENMT: Head: normal to inspection, normocephalic and atraumatic Ears: external ears normal General nose exam: no epistaxis Eyes: Conjunctivae: conjunctivae normal EOM: EOMs intact bilaterally Neck: Neck: normal visual inspection, supple and no JVD Resp: Effort & Inspection: normal respiratory effort and not labored Auscultation: clear to auscultation bilaterally and other (BS =) Cardio: Rate: regular rate and tachycardic Rhythm: regular rhythm Heart sounds: no murmurs GI: GI Palp: Yes Soft to palpation, Yes Te
[2020-12-15 15:22] LABS: Basophils Percent Auto 0.2 % (0.2-1.2); Eosinophils Percent Auto 0.2 % (0-4.4); Hematocrit 22.7 % (42.0-52.0); Hemoglobin 7.9 g/dL (14.0-18.0); Immature Granulocyte Absolute 0.06 K/mm3 (0.00-0.031); Immature Granulocyte Percent A 0.5 % (0-0.5); Lymphocytes Absolute Auto 1.09 K/mm3 (0.9-3.2); Lymphocytes Percent Auto 8.6 % (18.3-44.2); Mean Corpuscular HGB Conc 34.8 g/dl (32-36); Mean Corpuscular Hemoglobin 30.3 pg (26-34); Mean Platelet Volume 9.4 fl (7.4-10.4); Monocytes Absolute Auto 1.2 K/mm3 (0.1-0.6); Monocytes Percent Auto 9.4 % (2.6-8.5); Neutrophils Absolute Auto 10.2 K/mm3 (1.3-6.7); Neutrophils Percent Auto 81.1 % (45.5-73.1); Platelet Count Result 197 k/mm3 (150-375); Red Blood Count 2.61 M/mm3 (4.6-6.20); Red Cell Distribution Width 13.2 % (11.5-14.5); White Blood Count 12.6 K/mm3 (4.5-10.0)
[2020-12-15 15:42] LABS: Anion Gap 8 mmol/L (8-16); Bilirubin Indirect 0.6 mg/dL (0-1.1); Blood Urea Nitrogen 51 mg/dL (9-20); Calcium 7.9 mg/dL (8.4-10.2); Carbon Dioxide 26 mmol/L (22-30); Chloride 94 mmol/L (98-107); Estimated CRCL calculation 25 ml/min; Estimated Glomerular Filt Rate 16; Glucose 106 mg/dL (75-110); Lactate Dehydrogenase 282 U/L (313-618); Sodium 128 mmol/L (137-145)
[2020-12-15 15:47] LABS: Iron 26 ug/dL (49-181)
[2020-12-15 15:57] LABS: Percent Iron Saturation 11 % (20-50)
--- NOTE | 2020-12-15 17:07 | PC.NURSE ---
waiting to hear from Kacie who is admitting pt, whether it's urology or hospitalist.
[2020-12-15] MEDS: ALBUTEROL SULFATE NEB 2.5 MG/0.5 ML INH 5 MG INHALATION ×2 (17:46→20:17)
[2020-12-15 17:58] LABS: Hematocrit 24.2 % (42.0-52.0); Hemoglobin 8.3 g/dL (14.0-18.0)
[2020-12-15 18:01] LABS: Add Urine Microscopic? YES; Appearance Urine Cloudy (Clear); Bacteria Urine Trace /hpf; Bilirubin Urine Negative (Negative); Blood Urine 3+ (Negative); Color Urine Yellow (Yellow); Glucose Urine UA Negative (Negative); Hyaline Casts Urine 20-29 /lpf; Ketones Urine Negative (Negative); Leukocyte Esterase Ur 2+ LEU/UL (Negative); Mucus Urine Moderate /lpf; Nitrate Urine Negative (Negative); Protein Urine 2+ mg/dL (Negative); RBC Urine >75 /hpf (0-2); Specific Grav Ur 1.013 (1.001-1.035); Squamous Epithelial Cell Urine Occasional /hpf (Few); Urobilinogen Urine Negative mg/dL (<2.0); WBC Urine 21-30 /hpf
[2020-12-15 18:05] LABS: Prothrombin Time 13.6 Seconds (11.1-14.7)
[2020-12-15 18:20] LABS: Creatinine Urine 123.2 mg/dL; Sodium Urine Random 13 meq/L
--- NOTE | 2020-12-15 19:15 | PM.IMHP ---
H&P: HPI History of Present Illness Date/Time: 12/15/20 19:15 Chief Complaint: Low blood pressure and dizziness. Narrative: This is a very pleasant 60-year-old male with hypertension, benign prostatic hyperplasia, and history of kidney stones who presented to the emergency department earlier today from home for evaluation of low blood pressure and dizziness. He had a cystoscopy with left ureteral stent placement and ESWL [address] Rodriguez. Post surgery he had quite a bit of pain and in fact he reports that pain was much worse than the pain he was experiencing with the kidney stones. He was admitted overnight for pain control and was discharged home yesterday afternoon, feeling a bit better. Unfortunately he has become progressively more weak and dizzy since that time. He also continues to have severe sharp, shooting pain in his low back and left flank. He was extremely lightheaded with blurry vision today and notes that his blood pressure was low and thus he was brought in for evaluation. He also notes that his scrotum is swollen on the left and appears to have bruising, which he states was noted by the surgeon yesterday. CT of the abdomen and pelvis showed evidence of a subcapsular hematoma as well as retroperitoneal bleeding and he is being admitted in this setting. I spoke to Dr. Perez (urologist motel front desk clerk this weekend) regarding the patient's case, of which he is familiar. We discussed a couple of scenarios including possible transfer however at this time he feels that embolization is not necessary after reviewing the patient's imaging and suggests supportive care with bed rest and blood transfusions to maintain a stable hemoglobin. The bleed should tamponade and cease on its own. At the time my evaluation he reports that his pain is a bit better with IV pain medication and he feels less lightheaded after receiving IV fluids. He denies fever, chills, and sweats. No dysuria or significant hematuria but he has noticed a decrease in urine output. He denies syncope. No chest pain or shortness of breath. Review of Systems Review of Systems: Narrative: Twelve systems were reviewed with pertinent positives and negatives as per HPI. No cold or flu symptoms. He denies cough and shortness of breath. No exposure to those positive for COVID-19. He denies lower extremity edema. No history of DVT or PE. Except as documented, all other systems were reviewed and are negative. PMFSH Past Medical History Medical History (Updated 12/15/20 @ 23:53 by Kacie Osborn PA-C) Benign prostatic hyperplasia Hypertension Nephrolithiasis Osteoarthritis Surgical History Surgical History (Updated 12/15/20 @ 23:47 by Kacie Osborn PA-C) History of bilateral knee replacement History of cystoscopy History of lithotripsy History of lumbar surgery History of tonsillectomy Family History Family History Father Renal cancer Myocardial infarct Cerebrovascular accident Mother Pancreatic cancer Social History Social History (Updated 12/15/20 @ 23:48 by Kacie Osborn PA-C) Social History: Surrogate decision maker: Vita Martinez, . Code status: Full code. Smoking packs per day: 0.1 Smoking cigarettes per day: 2.0 Years smoked: 10 Smoking pack-years: 1.00 Smoking status: Former smoker Tobacco type: cigarettes Smoking end date: 09/13/07 Alcohol intake: current Drinks per week: 2 Substance use: never Substance use type: does not use Additional living arrangements comments: The patient lives with his in [place]. 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 Gender identity (if verbalized by the patient): Male Spiritual care concerns: No Meds Home Medications and Allergies Home Medications Medication Instructions Recorded Confirmed Type metoprolol tartrate 25 mg PO DAILY 06/29/20 12/15/20 H
--- NOTE | 2020-12-15 19:34 | PM.EVENT ---
Event Note Event Note Event Note: Reviewed CT, labs, vitals. Spoke with hospitalist. He has a subcapsular hematoma in his left kidney after ESWL with acute blood loss anemia. Left stent in appropriate position, no left or right hydro. Bladder empty. HGB 7.9 from 14 a few days ago. Lactate, INR, PLT normal. ECG reads a HR of 80 and his SBP is > 100. ICU with close monitoring plus bedrest and serial HGB with transfusion to keep HGB > 8. Avoid blood thinners eg toradol, ibuprofen.
--- NOTE | 2020-12-15 20:10 | ADMGEN ---
This patient, Ifeoma Martinez, was admitted to Intensive Care Unit-6. Patient/family oriented to hospital policies and general routines including ID bracelet, bed and alarms, visiting hours, pain management, procedures, bathroom and other care routines, personal items, smoking policy, room service/diet, and visiting hours. Information on how to activate the Rapid Response Team has been discussed. Patient/Family are encouraged to report perceived risks to care and to ask questions if they do not understand what they are told or what they should do.
--- NOTE | 2020-12-15 20:31 | ADMGEN ---
This patient, Ifeoma Martinez, was admitted to Intensive Care Unit-6 on 12/15/20 at 2020. Patient/family oriented to hospital policies and general routines including ID bracelet, bed and alarms, visiting hours, pain management, procedures, bathroom and other care routines, personal items, smoking policy, room service/diet, and visiting hours. Information on how to activate the Rapid Response Team has been discussed. Patient/Family are encouraged to report perceived risks to care and to ask questions if they do not understand what they are told or what they should do.
[2020-12-15 20:44] LABS: Hematocrit 22.1 % (42.0-52.0); Hemoglobin 7.7 g/dL (14.0-18.0)
[2020-12-15] MEDS: FAMOTIDINE 20 MG/2 ML VIAL IV PUSH (21:26)
[2020-12-16] VITALS (11 sets, daily range): BP systolic 101–140; BP diastolic 55–83; PULSE 96–116; RESP 18–23; TEMP 36.6–37.4; O2SAT 88–95
[2020-12-16] MEDS: LACTATED RINGERS 1,000 ML 150 ML IV CONT (01:06)
[2020-12-16 02:00] LABS: Hematocrit 25.9 % (42.0-52.0); Hemoglobin 9.1 g/dL (14.0-18.0); Mean Corpuscular HGB Conc 35.1 g/dl (32-36); Mean Corpuscular Hemoglobin 29.8 pg (26-34); Mean Corpuscular Volume 84.9 fl (80-100); Mean Platelet Volume 9.3 fl (7.4-10.4); Platelet Count Result 196 k/mm3 (150-375); Red Blood Count 3.05 M/mm3 (4.6-6.20); Red Cell Distribution Width 13.5 % (11.5-14.5); White Blood Count 9.2 K/mm3 (4.5-10.0)
[2020-12-16 02:15] LABS: Lactic Acid Reflex 1.2 mmol/L (0.7-2.1)
[2020-12-16 02:17] LABS: Alanine Aminotransferase 15 U/L (4-50); Alkaline Phosphatase 52 U/L (38-126); Anion Gap 3 mmol/L (8-16); Aspartate Amino Transferase 23 U/L (17-59); Bilirubin,Total 0.7 mg/dL (0.2-1.3); Blood Urea Nitrogen 47 mg/dL (9-20); CRP 7.2 mg/dL (<1.0); Carbon Dioxide 29 mmol/L (22-30); Chloride 99 mmol/L (98-107); Estimated CRCL calculation 35 ml/min; Estimated Glomerular Filt Rate 22; Glucose 113 mg/dL (75-110); Potassium 3.6 mmol/L (3.4-5.0); Sodium 131 mmol/L (137-145)
[2020-12-16] MEDS: ALBUTEROL SULFATE NEB 2.5 MG/0.5 ML INH 5 MG INHALATION (02:39)
[2020-12-16] MEDS: HYDROcodone/acetaminophen (*CRX) 5-325 MG TABLET 1 TAB PO (03:01)
[2020-12-16] MEDS: FUROSEMIDE INJ 40 MG/4 ML VIAL 20 MG IV PUSH (05:56)
--- NOTE | 2020-12-16 07:27 | WPDURCON ---
Assessment and Plan Assessment and plan (1) Hematoma of left kidney: Qualifiers: Encounter type: initial encounter Qualified Code(s): S37.012A - Minor contusion of left kidney, initial encounter Code(s): S37.012A - Minor contusion of left kidney, initial encounter Status: Acute Assessment and Plan: His vital signs are stabilizing. His labs were stable idea as well. Will continue to avoid blood thinners. Can allow some activity. Continue to monitor hemoglobin and hematocrit (2) Kidney stone on left side: Code(s): N20.0 - Calculus of kidney Status: Acute Assessment and Plan: CT scan reviewed. Stent in good position (3) Acute kidney injury: Code(s): N17.9 - Acute kidney failure, unspecified Status: Acute Assessment and Plan: Improving Urology Consult Note HPI Date Seen: 12/16/20 Requesting Physician: Alex Sanderson MD Primary Care Provider: Deacon TateMD Consult Narrative Narrative: Ifeoma Martinez is a 60 year old male with a history of kidney stones. He has had a stent in the past and a stone procedure. He was recently diagnosed a 12 mm left renal stone. On Wednesday he underwent stent placement as well as shockwave lithotripsy. He returned to the ER feeling dizzy with a low blood pressure. CT scan revealed a perinephric hematoma as well as acute blood-loss anemia. The stent was in place. He was admitted to the ICU for monitoring. Upon examination of his labs today they seem to be stabilizing. His vital seen to be stabilizing as well. He has no specific complaints. He does not note a lot of flank pain. He states he is voiding well with clear yellow urine Review of Systems Review of Systems: All systems reviewed & are unremarkable except as noted in HPI and below PMFSH Past Medical History Medical History (Updated 12/16/20 @ 07:31 by Anthony Murillo MD) Benign prostatic hyperplasia Hypertension Nephrolithiasis Osteoarthritis Surgical History Surgical History (Updated 12/15/20 @ 23:47 by Kacie Osborn PA-C) History of bilateral knee replacement History of cystoscopy History of lithotripsy History of lumbar surgery History of tonsillectomy Family History Family History Father Renal cancer Myocardial infarct Cerebrovascular accident Mother Pancreatic cancer Social History Social History (Updated 12/15/20 @ 23:48 by Kacie Osborn PA-C) Social History: Surrogate decision maker: Vita Martinez, . Code status: Full code. Smoking packs per day: 0.1 Smoking cigarettes per day: 2.0 Years smoked: 10 Smoking pack-years: 1.00 Smoking status: Former smoker Tobacco type: cigarettes Smoking end date: 09/13/07 Alcohol intake: current Drinks per week: 2 Substance use: never Substance use type: does not use Additional living arrangements comments: The patient lives with his in [place]. 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 Gender identity (if verbalized by the patient): Male Spiritual care concerns: No Meds Home Medications and Allergies Home Medications Medication Instructions Recorded Confirmed Type metoprolol tartrate 25 mg PO DAILY 06/29/20 12/15/20 History Glucosamine Chondroitin 2 cap PO DAILY 12/05/20 12/15/20 History ibuprofen 600 mg PO TID PRN 12/05/20 12/15/20 History lisinopril-hydrochlorothiazide 1 tablet PO DAILY 12/05/20 12/15/20 History potassium citrate 10 meq PO DAILY 12/05/20 12/15/20 History hydrocodone-acetaminophen 1 tablet PO Q8H PRN 3 Days #12 12/14/20 12/15/20 Rx tablet oxybutynin chloride 10 mg PO DAILY 5 Days #5 tablet 12/14/20 12/15/20 Rx sulfamethoxazole-trimethoprim 1 tablet PO Q12H 5 Days #10 tablet 12/14/20 12/15/20 Rx [Bactrim DS] tamsulosin 0.4 mg PO DAILY #14 cap 12/14/20 12/15/20 Rx Allergies Allergy/AdvReac Type Se
[2020-12-16] MEDS: TAMSULOSIN HCL 0.4 MG CAPSULE PO (08:08)
[2020-12-16 08:44] LABS: Hematocrit 27.9 % (42.0-52.0); Hemoglobin 9.6 g/dL (14.0-18.0)
--- NOTE | 2020-12-16 10:18 | PM.IMPN ---
Progress Note: A&P Assessment and Plan (1) Postoperative hemorrhagic shock: Code(s): T81.19XA - Other postprocedural shock, initial encounter Status: Acute Assessment and Plan: Blood pressure dropped to 88/38 at 1 point. He responded with fluids and transfusion. Blood pressure became better controlled. Antihypertensives on hold. Did not require pressors. Continue to monitor closely. Okay to downgrade. Apnea link ordered as well due to concerns about apnea/hypoxia (although could be related to the fluid overload). (2) Acute blood loss anemia: Code(s): D62 - Acute posthemorrhagic anemia Status: Acute Assessment and Plan: Hemoglobin was 14.1 on December 13. Hemoglobin dropped to 7.7 and he was transfused 2 units of packed red blood cells. Related to acute blood loss anemia secondary to the acute subcapsular hematoma. Hemoglobin climbed to 9.1 and is stable on repeat. Continue to monitor HH closely. (3) Acute kidney injury: Code(s): N17.9 - Acute kidney failure, unspecified Status: Acute Assessment and Plan: Baseline creatinine is 0.8-1.2 over the past few months prior to admission. Creatinine climbed to 3.9 on admission. This is related to the left kidney hematoma and the bilateral obstructing kidney stones. Treated with IV fluids. Evidence of fluid overload so fluids were stopped and IV Lasix were given. Excellent urine output now. Creatinine improved to 2.9 this morning. Will repeat creatinine later today. (4) Hematoma of left kidney: Qualifiers: Encounter type: initial encounter Qualified Code(s): S37.012A - Minor contusion of left kidney, initial encounter Code(s): S37.012A - Minor contusion of left kidney, initial encounter Status: Acute Assessment and Plan: CT of the abdomen and pelvis showing large acute subcapsular hematoma involving left kidney. There is a smaller volume of acute hematoma in the bilateral retroperitoneum and extraperitoneal pelvis, left worse than right. There is a small volume of hematoma in left paracolic gutter and in the left inguinal hernia. Related to the ESWL. Plan for close observation. Monitor HH closely. Urology following. Follow. (5) Retroperitoneal hematoma: Code(s): K66.1 - Hemoperitoneum Status: Acute Assessment and Plan: As above. (6) Bilateral kidney stones: Code(s): N20.0 - Calculus of kidney Status: Acute Assessment and Plan: Patient had left ureteral stent placed and ESWL prior to admission. CT Abd/Pelvis showing approximately 6 stones in right kidney measuring up to 3 mm. There are at least 5 stones and/or clusters of stones in left kidney measuring up to 11 mm. There is a left internal ureteral stent in expected position. There is a punctate stone adjacent to the stent proximally in the renal pelvis. Urine clear. Per urology. (7) Benign prostatic hyperplasia: Code(s): N40.0 - Benign prostatic hyperplasia without lower urinary tract symptoms Status: Acute Assessment and Plan: CT scan showing the prostate is mildly enlarged. Flomax resumed. He is tolerating this well. (8) DVT prophylaxis: Code(s): Z29.9 - Encounter for prophylactic measures, unspecified Status: Acute Assessment and Plan: SCDs Subjective Date/time seen: 12/16/20 10:18 Interval history: 60yo male with hx of HTN and recent left ureteral stent placed with ESWL for nephrolithiasis here for hypotension related to acute blod loss anemia from a retroperitoneal hematoma. Patient is up to the chair this morning. He was hypoxic overnight. He may have had some apneic episodes per RN but also patient was fluid overloaded and he received Lasix. Nursing staff states patient had 3 L urine output after the Lasix. Patient is off IV fluids. He never required pressors. He did receive 2 units of packed red blood cells yesterday.
--- NOTE | 2020-12-16 11:41 | WPDCNINT ---
Assessment and Plan Assessment and plan (1) Acute blood loss anemia: Code(s): D62 - Acute posthemorrhagic anemia Status: Acute Assessment and Plan: His hemoglobin was 7.7 yesterday while it was 14.1 few days ago before his procedure. He was given 2 units of PRBC and hemoglobin was 9.1 today. Continue to monitor H&H. Transfuse PRBC if indicated. (2) Hematoma of left kidney: Qualifiers: Encounter type: initial encounter Qualified Code(s): S37.012A - Minor contusion of left kidney, initial encounter Code(s): S37.012A - Minor contusion of left kidney, initial encounter Status: Acute Assessment and Plan: Urology follow-up. No active intervention at this time. If further active bleeding then he would need IVR coiling to control bleeding. Continue to monitor H&H. Transfuse PRBC if indicated. (3) Retroperitoneal hematoma: Code(s): K66.1 - Hemoperitoneum Status: Acute Assessment and Plan: As above. Pain control with opiates. I have discontinued fentanyl and will put him on morphine and [place] on a as needed basis for pain control. Wean opiates if pain is adequately controlled. (4) Acute kidney failure: Code(s): N17.9 - Acute kidney failure, unspecified Status: Acute Assessment and Plan: Renal parameters improving. Likely prerenal in etiology. He had good urine output of 4.2 L in the last 24 hours. Mild asymptomatic hyponatremia but that has been improving with IV fluid resuscitation. Continue to monitor renal parameters and electrolytes. Strict intake output record and elevate. On ceftriaxone empirically. Follow cultures. (5) Bilateral kidney stones: Code(s): N20.0 - Calculus of kidney Status: Acute Assessment and Plan: Urology following. No active intervention at this time. (6) Hypotension: Code(s): I95.9 - Hypotension, unspecified Status: Acute Assessment and Plan: Hypertensive yesterday but hemodynamics improved after blood transfusion and IV fluid resuscitation. Continue to hold lisinopril hydrochlorothiazide and metoprolol. Resume blood pressure meds if blood pressure trended up. Continue to monitor hemodynamics closely. Additional Plan DVT prophylaxis with SCD boot because of ongoing bleeding GI prophylaxis not indicated Code status full He will be downgraded today to IMU/telemetry status. Manager Community Outreach Consult Note Consult date: 12/16/20 Time Seen: 10:57 HPI: Ifeoma Martinez is a 60 year old male with past medical history of hypertension BPH history of kidney stone who was brought in to the emergency department with dizziness lightheadedness generalized weakness and hypotension. He had a recent ESWL with left ureteric stent placement 2 days ago. He started to have pain on the left side which is now diffuse on the back which is sharp in nature. Was found to have acute blood loss anemia in the emergency department with a CT scan of the abdomen and pelvis showed subcapsular and retroperitoneal bleeding. He was transfused 2 units of blood. He was seen by urology already. He does have acute kidney injury but that has been improving. He was on 3 L of oxygen at the time my evaluation. He did not require any pressor supports. Review of Systems Review of Systems: Narrative: A comprehensive review of systems has been reviewed with the patient and most of the symptoms are negative except the one's mentioned above in HPI. FOR[facility]LY [facility] Past Medical History Medical History (Updated 12/16/20 @ 10:28 by Dionicio Sanderson MD) Benign prostatic hyperplasia Hypertension Nephrolithiasis Osteoarthritis Surgical History Surgical History (Updated 12/15/20 @ 23:47 by Kacie Osborn PA-C) History of bilateral knee replacement History of cystoscopy History of lithotripsy History of lumbar surgery History of tonsillectomy Family History Family History (
[2020-12-16] MEDS: DOCUSATE SODIUM 100 MG CAPSULE PO (12:30)
[2020-12-16 12:35] LABS: Hematocrit 29.3 % (42.0-52.0); Hemoglobin 10.2 g/dL (14.0-18.0)
[2020-12-16 12:47] LABS: Anion Gap 7 mmol/L (8-16); Blood Urea Nitrogen 46 mg/dL (9-20); Calcium 8.3 mg/dL (8.4-10.2); Carbon Dioxide 28 mmol/L (22-30); Chloride 100 mmol/L (98-107); Estimated CRCL calculation 47 ml/min; Estimated Glomerular Filt Rate 32; Glucose 98 mg/dL (75-110); Potassium 4.3 mmol/L (3.4-5.0); Sodium 135 mmol/L (137-145)
--- NOTE | 2020-12-16 16:18 | PC.NURSE ---
This patient, Ifeoma Martinez, was transferred to [ [id number]] on 12/16/20 at 1618. Personal belongings sent with patient. Report given to [ LEATHA Olivier @ [id number]]. Appropriate documentation sent with patient.
--- NOTE | 2020-12-16 16:23 | PC.NURSE ---
This patient, Ifeoma Martinez, was received from ICU-06 on 12/16/20 at 1623. Patient/family oriented to unit policies and routines. Report received from LEATHA Cardenas @ [id number].
[2020-12-16 18:02] LABS: Hematocrit 28.9 % (42.0-52.0)
--- NOTE | 2020-12-17 00:43 | PCRCNOTE ---
PT REFUSED APNEA LINK. LEATHA MCDANIELSSTDANIEL NOTIFIED
[2020-12-17 01:19] LABS: Hematocrit 27.2 % (42.0-52.0); Hemoglobin 9.4 g/dL (14.0-18.0)
[2020-12-17 05:33] VITALS: BP 115/76; PULSE 98; RESP 20; TEMP 37.2; O2SAT 94
[2020-12-17 06:04] LABS: Hematocrit 28.1 % (42.0-52.0); Hemoglobin 9.5 g/dL (14.0-18.0); Mean Corpuscular HGB Conc 33.8 g/dl (32-36); Mean Corpuscular Hemoglobin 29.6 pg (26-34); Mean Corpuscular Volume 87.5 fl (80-100); Mean Platelet Volume 9.3 fl (7.4-10.4); Platelet Count Result 227 k/mm3 (150-375); Red Blood Count 3.21 M/mm3 (4.6-6.20); Red Cell Distribution Width 13.9 % (11.5-14.5); White Blood Count 9.5 K/mm3 (4.5-10.0)
[2020-12-17 06:41] LABS: Anion Gap 3 mmol/L (8-16); Blood Urea Nitrogen 31 mg/dL (9-20); Calcium 8.4 mg/dL (8.4-10.2); Carbon Dioxide 31 mmol/L (22-30); Chloride 103 mmol/L (98-107); Estimated CRCL calculation 70 ml/min; Estimated Glomerular Filt Rate 52; Glucose 118 mg/dL (75-110); Potassium 4.1 mmol/L (3.4-5.0); Sodium 137 mmol/L (137-145)
[2020-12-17] MEDS: TAMSULOSIN HCL 0.4 MG CAPSULE PO (08:04)
[2020-12-17 11:35] LABS: Hematocrit 28.8 % (42.0-52.0); Hemoglobin 9.7 g/dL (14.0-18.0)
--- NOTE | 2020-12-17 12:38 | PM.DS ---
DS: Admitting Diagnosis Admitting Diagnosis Admitting Diagnosis: hemorrhagic shock DS: Discharge Diagnosis Discharge Diagnosis (1) Postoperative hemorrhagic shock: Code(s): T81.19XA - Other postprocedural shock, initial encounter Status: Acute (2) Acute kidney injury: Code(s): N17.9 - Acute kidney failure, unspecified Status: Acute (3) Hypotension: Code(s): I95.9 - Hypotension, unspecified Status: Acute (4) Hematoma of left kidney: Qualifiers: Encounter type: initial encounter Qualified Code(s): S37.012A - Minor contusion of left kidney, initial encounter Code(s): S37.012A - Minor contusion of left kidney, initial encounter Status: Acute (5) Acute blood loss anemia: Code(s): D62 - Acute posthemorrhagic anemia Status: Acute (6) Retroperitoneal hematoma: Code(s): K66.1 - Hemoperitoneum Status: Acute (7) Bilateral kidney stones: Code(s): N20.0 - Calculus of kidney Status: Acute (8) Anemia: Code(s): D64.9 - Anemia, unspecified Status: Acute (9) Status post laser lithotripsy of ureteral calculus: Code(s): Z98.890 - Other specified postprocedural states Status: Acute DS: Summary Hospital Course Reason for hospitalization: hypotension Hospital Course: 60yo male with hx of HTN and recent left ureteral stent placed with ESWL for nephrolithiasis here for hypotension related to acute blod loss anemia from a retroperitoneal hematoma. # Postoperative hemorrhagic shock:bp low on admission. respondedd to fluids and was transfused two units of prbc. did not require pressors. his antihypertensvies are on hold. will resume metoprolol at discahrge. lisonpril/hctz on hold for discharge. fu with pcp to resume them at follow up. # Acute blood loss anemia: hb 14.1 on december 13 to 7.7. trasnsfued 2 untis prbc. # ADDI: Baseline creatinine is 0.8-1.2 over the past few months prior to admission. Creatinine climbed to 3.9 on admission. This is related to the left kidney hematoma and the bilateral obstructing kidney stones. Treated with IV fluids. Evidence of fluid overload so fluids were stopped and IV Lasix were given. Excellent urine output now. creatinine down to 1.4. hold diuretics at discahrge. fu with pcp in 1 week for resumption. # Hematoma of left kidney: CT of the abdomen and pelvis showing large acute subcapsular hematoma involving left kidney. There is a smaller volume of acute hematoma in the bilateral retroperitoneum and extraperitoneal pelvis, left worse than right. There is a small volume of hematoma in left paracolic gutter and in the left inguinal hernia. Related to the ESWL. Plan for close observation. Monitor HH closely. Urology following. Follow. h and h remains stable. # Retroperitoneal hematoma: As above. # Bilateral kidney stones: Patient had left ureteral stent placed and ESWL prior to admission. CT Abd/Pelvis showing approximately 6 stones in right kidney measuring up to 3 mm. There are at least 5 stones and/or clusters of stones in left kidney measuring up to 11 mm. There is a left internal ureteral stent in expected position. There is a punctate stone adjacent to the stent proximally in the renal pelvis. Urine clear. Per urology. # Benign prostatic hyperplasia: CT scan showing the prostate is mildly enlarged. Flomax resumed. He is tolerating this well. # DVT prophylaxis: SCDs Status at Discharge Overall status at discharge: patient is progressing back to baseline Time Spent with Patient Time attestation: Total time spent providing and/or coordinating discharge services: Time spent: Greater than 30 minutes Exam Narrative: Exam Narrative: Gen - NARD sitting up in the chair Chest -bilateral clear to ausculation, Normal respiratory rate. CV - RRR S1/S2. Abd - Soft, NT/ND, Positive BS Back -no CVA tenderness Ext - No pedal edema, cyanosis or clubbing Psych - Nm
--- NOTE | 2020-12-17 12:55 | WPDUROPN2 ---
Progress Note: A&P Assessment and Plan (1) Hematoma of left kidney: Qualifiers: Encounter type: initial encounter Qualified Code(s): S37.012A - Minor contusion of left kidney, initial encounter Code(s): S37.012A - Minor contusion of left kidney, initial encounter Status: Acute Assessment and Plan: Has been hemodynamically stable. Okay to discharge from Urology standpoint. Scrotal ecchymosis and fullness is most likely secondary to hematoma which is tract down to the scrotum. Recommended scrotal support and ice pack as needed. Will plan on seeing Ifeoma back in the office in a couple of weeks. Most likely will not reimage for about a month if he is doing well. Subjective Subjective Date/Time Seen: 12/17/20 12:55 Principal diagnosis: Perinephric hematoma post ESWL Interval history: Trace is feeling better today. His only complaint is some scrotal swelling. He is hemodynamically stable. Review of Systems Review of Systems: All systems reviewed & are unremarkable except as noted in HPI and below Exam Const: General: cooperative and comfortable : Male General Exam: Yes ecchymosis Objective Data Vital Signs Vital Signs: Vital Signs - 24 hr 12/16/20 16:25 12/16/20 21:27 12/17/20 05:33 Temperature 37.2 C 37.4 C 37.2 C Pulse Rate 105 H 111 H 98 Respiratory Rate 20 20 20 Blood Pressure 138/77 140/69 115/76 Pulse Oximetry 95 94 94 Intake/Output Intake/Output: Intake & Output 12/14/20 12/15/20 12/16/20 12/17/20 23:59 23:59 23:59 23:59 Intake Total 3413 2825 1030 Output Total 978 0707 1800 Balance 3321 -4814 -533 Meds/Results Medications: Active Medications Generic Name Dose Route Start Last Admin Trade Name Freq PRN Reason Stop Dose Admin Hydrocodone Bitart/Acetaminophen 1 tab 12/15/20 23:59 12/16/20 03:01 Hydrocodone/Acetaminophen (*Crx) 5-325 Mg Tablet PO 1 tab Q8H PRN Administration Pain Rated 4-6 Albuterol 5 mg 12/16/20 09:20 Albuterol Sulfate Neb 2.5 Mg/0.5 Ml Inh INHALATION Q6HRT PRN Shortness Of Breath Or Wheezing Docusate Sodium 100 mg 12/16/20 12:05 12/16/20 12:30 Docusate Sodium 100 Mg Capsule PO 100 mg DAILY PRN Administration Constipation Ceftriaxone Sodium/Dextrose 1 gm in 50 mls @ 100 mls/hr 12/16/20 18:00 12/16/20 18:15 Rocephin 1 Gm/D5w 50 Ml IVPB Infused Q24H KITA Infusion Morphine Sulfate 2 mg 12/16/20 07:48 Morphine Sulfate (*Crx) 2 Mg/Ml Inj IV PUSH Q4H PRN Pain Rated 7-10 Ondansetron HCl 4 mg 12/15/20 18:35 Ondansetron Inj 4 Mg/2 Ml Vial IV PUSH Q4H PRN Nausea Tamsulosin HCl 0.4 mg 12/16/20 09:00 12/17/20 08:04 Tamsulosin Hcl 0.4 Mg Capsule PO 0.4 mg DAILY KITA Administration Radiology Results: ITS Impressions Abdomen/Pelvis CT 12/15/20 14:45 IMPRESSION: 1. Large acute subcapsular hematoma of left kidney with extension into the surrounding retroperitoneum. 2. Bilateral obstructing kidney stones. Left internal ureteral stent in expected position. ADDENDUM: 12/15/20 1450 I discussed this case with Dr. Reyna. Chest X-Ray 12/16/20 06:39 IMPRESSION: 1. Small lung volumes with stable atelectasis in the lower lung zones. Labs Labs: Laboratory Results - last 24 hr 12/16/20 12/17/20 12/17/20 17:57 00:59 05:53 WBC 9.5 RBC 3.21 L Hgb 10.0 L 9.4 L 9.5 L Hct 28.9 L 27.2 L 28.1 L MCV 87.5 MCH 29.6 MCHC 33.8 RDW 13.9 Plt Count 227 MPV 9.3 Sodium Potassium Chloride Carbon Dioxide Anion Gap BUN Creatinine Estim Creat Clear Calc Estimated GFR Glucose Calcium 12/17/20 12/17/20 05:53 11:28 WBC RBC Hgb 9.7 L Hct 28.8 L MCV MCH MCHC RDW Plt Count MPV Sodium 137 Potassium 4.1 Chloride 103 Carbon Dioxide 31 H Anion Gap 3 L BUN 31 H D Creatinine 1.40 H Estim Creat Clear Calc 70 Estimated GFR 5
[2020-12-19 04:29] LABS: Osmolality, Urine 295 mOsm/kg (50-1200)
[2020-12-21 12:19] LABS: Haptoglobin 121 mg/dL (43-212)
== END 2020-12-17 13:40 | disposition home or self-care (01) | DRG 920 ==
LOC: ANHED 18:45 → ANHICU 22:31 → ANH3MEDSUR 12-17 07:43 → ANHICU 12-19 13:20
PROVIDERS: Family Medicine; Internal Medicine; Internal Medicine Critical Care Medicine; Physician Assistant; Admitting Provider Internal Medicine; Emergency Provider Emergency Medicine; PCP Family Medicine; Visit Provider Internal Medicine
DX: N99.840 Postprocedural hematoma of a genitourinary system organ or structure following a genitourinary system procedure (principal); N17.9 Acute kidney failure, unspecified; K91.871 Postprocedural hematoma of a digestive system organ or structure following other procedure; S37.012A Minor contusion of left kidney, initial encounter; S36.892A Contusion of other intra-abdominal organs, initial encounter; D62 Acute posthemorrhagic anemia; E87.1 Hypo-osmolality and hyponatremia; Z68.41 Body mass index [BMI] 40.0-44.9, adult; T81.19XA Other postprocedural shock, initial encounter; I95.81 Postprocedural hypotension; N20.0 Calculus of kidney; T50.2X5A Adverse effect of carbonic-anhydrase inhibitors, benzothiadiazides and other diuretics, initial encounter; T46.4X5A Adverse effect of angiotensin-converting-enzyme inhibitors, initial encounter; N40.0 Benign prostatic hyperplasia without lower urinary tract symptoms; E66.9 Obesity, unspecified; M19.90 Unspecified osteoarthritis, unspecified site; I10 Essential (primary) hypertension; Z96.653 Presence of artificial knee joint, bilateral; Z87.891 Personal history of nicotine dependence
CPT/HCPCS: 36415; 36430; 71045; 71046; 74176; 80048; 80053; 81001; 82570; 83010; 83540; 83550; 83605; 83615; 83735; 83880; 83935; 84300; 84484; 85014; 85018; 85025; 85027; 85046; 85610; 85730; 86140; 86850; 86900; 86901; 86923; 87086; 93005; 94640; 96361; 96365; 99285; A9270; J0696; J1940; J7120; P9016

== ENCOUNTER 2020-12-25 16:40 | Outpatient (CLI) | payer OTHER, SELFPAY ==
[2020-12-25 16:55] LABS: Basophils Absolute Auto 0.1 K/mm3 (0.0-0.1); Basophils Percent Auto 0.5 % (0.2-1.2); Eosinophils Absolute Auto 0.3 K/mm3 (0-0.3); Eosinophils Percent Auto 2.1 % (0-4.4); Hematocrit 33.8 % (42.0-52.0); Hemoglobin 11.2 g/dL (14.0-18.0); Immature Granulocyte Absolute 0.08 K/mm3 (0.00-0.031); Immature Granulocyte Percent A 0.6 % (0-0.5); Lymphocytes Absolute Auto 1.92 K/mm3 (0.9-3.2); Lymphocytes Percent Auto 15.2 % (18.3-44.2); Mean Corpuscular HGB Conc 33.1 g/dl (32-36); Mean Corpuscular Hemoglobin 29.2 pg (26-34); Mean Platelet Volume 8.4 fl (7.4-10.4); Monocytes Absolute Auto 0.9 K/mm3 (0.1-0.6); Neutrophils Absolute Auto 9.4 K/mm3 (1.3-6.7); Neutrophils Percent Auto 74.6 % (45.5-73.1); Platelet Count Result 435 k/mm3 (150-375); Red Blood Count 3.84 M/mm3 (4.6-6.20); Red Cell Distribution Width 13.4 % (11.5-14.5); White Blood Count 12.6 K/mm3 (4.5-10.0)
[2020-12-25 17:05] LABS: Anion Gap 2 mmol/L (8-16); Blood Urea Nitrogen 18 mg/dL (9-20); Calcium 9.3 mg/dL (8.4-10.2); Carbon Dioxide 30 mmol/L (22-30); Chloride 107 mmol/L (98-107); Estimated Glomerular Filt Rate > 60; Glucose 94 mg/dL (75-110); Potassium 4.1 mmol/L (3.4-5.0); Sodium 139 mmol/L (137-145)
== END 2020-12-25 16:41 | disposition home or self-care (01) ==
PROVIDERS: PCP Family Medicine; Visit Provider Internal Medicine
DX: N17.9 Acute kidney failure, unspecified (principal); D64.9 Anemia, unspecified
CPT/HCPCS: 36415; 80048; 85025

== ENCOUNTER → 2020-12-31 16:26 | Outpatient (CLI) | payer OTHER, SELFPAY ==
--- NOTE | ~2020-12-31 | US_ITS ---
US scrotum doppler INDICATION: Scrotal edema bilaterally. Recent lithotripsy. TECHNIQUE: Testicular sonogram utilizing grayscale and color Doppler FINDINGS: The testes are normal in size and appearance. No focal lesions are seen. The right testes measures 4.5 x 2.3 x 2.7 cm centimeters, and the left testis measures 2.7 x 2.6 x 2.5 cm cm. There is normal vascular flow to both testes. The right and left epididymides appear normal. There are bilateral hydroceles, left greater than right. There is a right varicocele. There is hetero geneous fluid surrounding the left testicle with a hyperechoic heterogeneous mass medial to the left testicle measuring 4.1 x 3.1 x 4.1 cm. There is associated vascularity.. IMPRESSION: 1. Complex left hydrocele with hyperechoic mass medial to the left testicle measuring up to 4.1 cm. Differential diagnosis for extratesticular mass includes a epididymitis, hematocele, fibrous pseudotu mor, mesenchymal tumors and papillary cystadenoma. 2: Right varicocele. 3: Moderate right hydrocele. Reviewed, dictated and finalized at location A. IMPRESSION: 1. Complex left hydrocele with hyperechoic mass medial to the left testicle me asuring up to 4.1 cm. Differential diagnosis for extratesticular mass includes a epididymitis, hematocele, fibrous pseudotumor, mesenchymal tumors and papilla ry cystadenoma. 2: Right varicocele. 3: Moderate right hydrocele.
== END ==
PROVIDERS: Visit Provider Nurse Practitioner Adult Health
DX: N43.3 Hydrocele, unspecified (principal); I86.1 Scrotal varices
CPT/HCPCS: 76870; 93976

== ENCOUNTER → 2021-01-01 09:36 | Outpatient (CLI) | payer OTHER, SELFPAY ==
--- NOTE | ~2021-01-01 | XR_ITS ---
XR abdomen/kub 1V 01/01/2021 09:48 Indication: Renal stone Procedure: KUB Comparison: Comparison to multiple prior studies sequentially, with oldest reviewed study dated 07/15. Findings: Bowel gas pattern is nonobstructive. There are stones in the lower pole of the left kidney. There is a left internal ureteral stent present. There are multiple stones in the left ureter, large st approximately at the L2 level overlying the transverse process. Moderate lumbar spondylosis. Impression: 1: Left renal and ureteral stones with left internal ureteral stent in expected position. Reviewed, dictated and finalized at location A. Impression: 1: Left renal and ureteral stones with left internal ureteral stent in expected position.
== END ==
PROVIDERS: PCP Family Medicine; Visit Provider Urology
DX: N20.2 Calculus of kidney with calculus of ureter (principal)
CPT/HCPCS: 74018

== ENCOUNTER → 2021-01-11 06:47 | Outpatient (CLI) | payer OTHER, SELFPAY ==
[2021-01-11 19:16] LABS: SARS-CoV-2 RNA PCR Negative
== END ==
PROVIDERS: PCP Family Medicine; Visit Provider Urology
DX: Z01.812 Encounter for preprocedural laboratory examination (principal); Z20.822 Contact with and (suspected) exposure to COVID-19
CPT/HCPCS: C9803; U0003; U0005

== ENCOUNTER 2021-01-14 01:26 | Day surgery (SDC) | payer OTHER, SELFPAY ==
[2021-01-06 11:21] VITALS: BMI 39.0
[2021-01-14] VITALS (8 sets, daily range): BP systolic 131–175; BP diastolic 83–97; PULSE 74–94; RESP 16–18; TEMP 36.4–36.5; O2SAT 95–98
--- NOTE | ~2021-01-14 | XR_ITS ---
EXAMINATION: XR retrograde pyelo w/stent LT EXAM DATE: 01/14/2021 15:30 INDICATION: Left-sided obstructive nephropathy, stone. TECHNIQUE: Fluoroscopy used during XR retrograde pyelo w/stent LT performed by Dr. Rick byrd MD, urologist. The radiologist Yonatan Hernandez M.D. dictating this report of the image(s) availabl e was not present for the procedure. Total fluoroscopic time of 1.0 minutes. The DAP for this proce dure was 1555 radcm2. A total of 6 images sent to PACS from the exam. Cine run(s) available for rev iew. FINDINGS: Left ureter was cannulated, injected. Mild left hydronephrosis. Double-J ureteral stent pl aced. Correlate with procedure note. IMPRESSION: Mild left hydronephrosis. Stent in position. Reviewed, dictated and finalized at location B.
[2021-01-14] MEDS: LACTATED RINGERS 1,000 ML 30 ML IV CONT (12:45)
--- NOTE | 2021-01-14 13:20 | WPDHPUPDATE1 ---
History and Physical Update Update Date/Time: 01/14/21 13:20 History and Physical has been reviewed, including an updated exam of the patient. There are NO changes in the patient's condition. Risks, benefits, and alternatives have been discussed and questions answered. Patient agrees to proceed with procedure. Proceed with cystoscopy left retrograde pyelogram, left ureteroscopy with stone extraction, possible holmium laser, stent exchange.
--- NOTE | 2021-01-14 14:03 | WPDANESEPPF ---
Anes - Initial Pre Proc Eval Procedure: Operation Date: 01/14/21 14:45 Proposed Procedures p Cystoscopy, Left Ureteroscopy, Left Retrograde Pyelogram, Left Stone Extraction, Left Stent Exchange - Rick Rodriguez MD s Holmium Laser Procedure - Rick Rodriguez MD Date/Time: 01/14/21 14:03 Surgeon: Rick Rodriguez MD Pre Op Diagnosis: left kidney calculus Patient Data Age: 60 Gender: M Height: 5 ft 11 in Weight: 125 kg Last Vital Signs Temp 36.5 C 01/14/21 11:54 Pulse 91 01/14/21 11:54 Resp 18 01/14/21 11:54 BP 131/83 01/14/21 11:54 Pulse Ox 98 01/14/21 11:54 Allergies Allergy/AdvReac Type Severity Reaction Status Date / Time No Known Allergies Allergy Verified 01/14/21 12:54 Home Medications Medication Instructions Recorded Confirmed Type metoprolol tartrate 25 mg PO DAILY 06/29/20 01/14/21 History Glucosamine Chondroitin 2 cap PO DAILY 12/05/20 01/14/21 History ibuprofen 600 mg PO TID PRN 12/05/20 01/14/21 History docusate sodium 100 mg PO DAILY PRN #30 cap 12/17/20 01/14/21 Rx lisinopril-hydrochlorothiazide 1 tablet PO DAILY 01/06/21 01/14/21 History Patient hx anesthesia problems: none Family hx anesthesia problems: none PMFSH Past Medical History Medical History Benign prostatic hyperplasia Hypertension Nephrolithiasis Osteoarthritis Surgical History Surgical History History of bilateral knee replacement History of cystoscopy History of lithotripsy History of lumbar surgery History of tonsillectomy Family History Family History Father Renal cancer Myocardial infarct Cerebrovascular accident Mother Pancreatic cancer Social History Social History Social History: Surrogate decision maker: Vita Martinez, . Code status: Full code. Smoking packs per day: 0.1 Smoking cigarettes per day: 2.0 Years smoked: 10 Smoking pack-years: 1.00 Smoking status: Former smoker Tobacco type: cigarettes Smoking end date: 09/13/07 Alcohol intake: current Drinks per week: 2 Substance use: never Substance use type: does not use Living arrangements: with family Additional living arrangements comments: The patient lives with his in [place]. 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 Gender identity (if verbalized by the patient): Male Spiritual care concerns: No Anes - Eval Final PreProcedure Day of Procedure 01/14/21 14:03 Patient weight: obese Heart: regular rate and rhythm Lungs: clear to auscultation Airway: Mallampati scale class II Neurological: alert and oriented Last oral intake: >/= 8 hours ASA classification: II Emergent: no Anesthetic plan: proceed Anesthesia type and monitoring: general LMA and standard monitoring Informed Consent: The patient's anesthetic plan and its attendant risks and benefits were discussed with the patient/family/POA. Questions were solicited and answers provided to the satisfaction of the patient/family/POA.
[2021-01-14] MEDS: ceFAZolin 3 GM/D5W 100 ML 100 ML IVPB (14:18)
--- NOTE | 2021-01-14 15:30 | P.OP_ITS ---
Procedure Note - Detailed Date of procedure: 01/14/21 Pre-op diagnosis: left kidney calculus Post-op diagnosis: same Procedure performed: Cystoscopy, left retrograde pyelogram, left ureteroscopy with stone extraction, holmium laser of stone, left stent exchange 4.8 [place] contour Description of procedure: Patient is taken the operative suite correctly identified. Once anesthesia was obtained he was placed in dorsal lithotomy position and prepped and draped usual sterile fashion. Twenty-two [place] scope was inserted in the bladder the prior stent was grasped brought onto the meatus. Guidewire was inserted through there. Rigid ureteral scope was then inserted in distal ureteral calculi were grasped with an escape basket and retrieved. We then placed a ureteral access sheath in. The proximal ureteral stones were grasped. There were too large to retrieve. Using holmium fiber we fragmented the was into multiple small pieces retrieve those. He then had a collection of stones in the lower pole which we were able to grasped with a 0 degree basket and retrieved. Inspection at termination procedure revealed no large residual stones at this time. Pyelogram was then performed to confirm placement of the stent. 4.8 [place] contour stent was then placed with the proximal end coiled in the renal pelvis and the distal in the bladder. 2% viscous lidocaine was inserted to the urethra patient is taken recovery stable condition. He will follow up in a week's time for stent removal. Anesthesia: GLMA Surgeon: Rick Rodriguez MD Drains: Yes Packing: No Pathology: yes Complications: No immediate complications Condition: stable Disposition: PACU
== END 2021-01-14 17:13 | disposition home or self-care (01) ==
PROVIDERS: PCP Family Medicine; Visit Provider Urology
PROC: (CPT 52352; principal; 2021-01-14 14:45)
PROC: (CPT 52356; 2021-01-14 14:45)
DX: N13.2 Hydronephrosis with renal and ureteral calculous obstruction (principal); I10 Essential (primary) hypertension; N40.0 Benign prostatic hyperplasia without lower urinary tract symptoms; M19.90 Unspecified osteoarthritis, unspecified site; Z87.891 Personal history of nicotine dependence; E66.9 Obesity, unspecified; Z68.38 Body mass index [BMI] 38.0-38.9, adult
CPT/HCPCS: 52356; 74420; 82365; 88300; C1769; C1894; C2617; C9803; J0690; J1100; J2250; J2405; J2704; J3010; J7120; Q9966; U0003; U0005

== ENCOUNTER → 2021-03-04 10:09 | Outpatient (CLI) | payer OTHER, SELFPAY ==
--- NOTE | ~2021-03-04 | XR_ITS ---
XR abdomen/kub 1V 03/04/2021 10:36 INDICATION: Left ureteral stone TECHNIQUE: KUB COMPARISON: 01/01/2021 FINDINGS: Bowel gas pattern is normal. There is no evidence of free air, mass, organomegaly, ascites or obstruction. No abnormal calculi are seen. Kidneys are obscured by bowel content. The bones appe ar intact. IMPRESSION: 1: No acute abdominal abnormality identified. Reviewed, dictated and finalized at location B.
== END ==
PROVIDERS: PCP Family Medicine; Visit Provider Urology
DX: N20.1 Calculus of ureter (principal)
CPT/HCPCS: 74018

== ENCOUNTER 2022-02-24 09:29 | Outpatient (CLI) | payer OTHER, SELFPAY ==
--- NOTE | ~2022-02-24 | XR_ITS ---
EXAMINATION: XR abdomen/kub 1V DATE: 02/24/2022 09:51 INDICATION: Calculus of kidney. TECHNIQUE: A supine view of the abdomen on 2 radiographs was obtained. COMPARISON: Abdomen radiographs 12/13/2020, CT abdomen and pelvis 12/15/2020 FINDINGS: There are no dilated loops of bowel. There are phleboliths in the pelvis. IMPRESSION: 1. No visible urolithiasis. Reviewed, dictated and finalized at location B. IMPRESSION: 1. No visible urolithiasis.
== END 2022-02-24 09:30 | disposition home or self-care (01) ==
PROVIDERS: PCP Family Medicine; Visit Provider Nurse Practitioner Adult Health
DX: N20.0 Calculus of kidney (principal)
CPT/HCPCS: 74018

== ENCOUNTER → 2022-08-10 10:27 | Outpatient (CLI) | payer OTHER, SELFPAY ==
--- NOTE | ~2022-08-10 | XR_ITS ---
EXAMINATION: XR lumbar spine 2-3V DATE: 08/10/2022 11:18 INDICATION: Low back pain radiating down the left hip. TECHNIQUE: 3 views of lumbar spine were obtained. COMPARISON: CT abdomen and pelvis 12/15/2020 FINDINGS: There is 3 mm retrolisthesis of L1 on L2 and L2 on L3. There is mild chronic anterior wedgi ng of L1 vertebral body. There is moderately decreased disc height at L1-L2 and L2-L3, severely decre ased disc height at L3-L4, and moderately decreased disc height at L4-L5 and L5-S1. There are endplat e osteophytes at all levels. There is severe facet joint osteoarthritis at most levels in lumbar spin e. IMPRESSION: 1. Severe lumbar spondylosis. Reviewed, dictated and finalized at location A. ONCOLOGY CLINICAL
== END ==
PROVIDERS: PCP Family Medicine; Visit Provider Chiropractor Rehabilitation
DX: M47.896 Other spondylosis, lumbar region (principal)
CPT/HCPCS: 72100

== ENCOUNTER → 2022-08-28 08:22 | Outpatient (CLI) | payer OTHER, SELFPAY ==
--- NOTE | ~2022-08-28 | MR_ITS ---
MRI of the lumbar spine Clinical History: Back pain, spondylosis Technique: Axial T2-weighted images, and sagittal T1-weighted, T2-weighted, and T2 fat-sat images wer e acquired. Findings: There is no fracture in the lumbar spine. Minimal grade 1 retrolisthesis of L1 over L2 note d. No suspicious bone marrow signal abnormality identified. At L1-L2, disc bulge and facet joint/ligamentum flavum hypertrophy contribute to focal severe thecal sac compression. There is moderate to advanced right neural foraminal narrowing, with possible underl adonis right foraminal disc protrusion. Left neural foramen preserved. At L2-L3, diffuse disc bulge and facet joint arthropathy result in severe thecal sac compression. The re is moderate to advanced right neural foraminal compromise. Left neural foramen preserved. At L3-L4, there is severe degenerative disc narrowing. There is mild disc osteophyte complex posterio rly with advanced facet joint arthropathy. No johnson spinal canal stenosis. There is moderate bilatera l neural foraminal compromise, left worse than right. At L4-L5, there is mild diffuse disc bulge, most prominent left foraminal region, with underlying adv anced facet joint arthropathy. No johnson central canal stenosis. There is mild to moderate left neural foraminal narrowing. Right neural foramen preserved. At L5-S1, there is mild central osteophyte posteriorly with advanced facet joint arthropathy. No spin al canal stenosis. Probable minimal bilateral neural foraminal narrowing. Paravertebral soft tissues are unremarkable. Impression: Advanced degenerative spondylosis, as detailed above. There is multifactorial severe thecal sac compr ession at L1-L2 and L2-L3. There is multilevel neural foraminal narrowing, as detailed above. Minimal grade 1 retrolisthesis of L1 over L2. 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 There is multifactorial s evere thecal sac compression at L1-L2 and L2-L3. There is multilevel neural for aminal narrowing, as detailed above. Minimal grade 1 retrolisthesis of L1 over L2.
== END ==
PROVIDERS: PCP Family Medicine; Visit Provider Chiropractor Rehabilitation
DX: M47.896 Other spondylosis, lumbar region (principal)
CPT/HCPCS: 72148

== ENCOUNTER → 2022-09-28 10:11 | Outpatient (CLI) | payer OTHER, SELFPAY ==
--- NOTE | ~2022-09-28 | XR_ITS ---
XR shoulder RT min 2V DATE: 09/28/2022 10:29 INDICATION: Right shoulder pain TECHNIQUE: 5 views COMPARISON: None FINDINGS: There is degenerative spurring at the right acromion clavicular joint and right glenohumera l joint. No fracture or dislocation, periosteal reaction or bone destruction is detected. There is some calcification in the region of the rotator cuff suggesting calcific tendinitis. There is an elongated right C7 transverse process. IMPRESSION: Degenerative spurring at the right acromioclavicular and glenohumeral joints Suspected calcific tendinitis of the rotator cuff Reviewed, dictated and finalized at location B. ENT DEVELOPMENT MANAGER IMPRESSION: Degenerative spurring at the right acromioclavicular and glenohumer al joints Suspected calcific tendinitis of the rotator cuff
== END ==
PROVIDERS: PCP Family Medicine; Visit Provider Family Medicine
DX: M25.511 Pain in right shoulder (principal); G89.29 Other chronic pain; M77.8 Other enthesopathies, not elsewhere classified
CPT/HCPCS: 73030

== ENCOUNTER → 2022-10-27 08:04 | Outpatient (CLI) | payer OTHER, SELFPAY ==
--- NOTE | ~2022-10-27 | MR_ITS ---
EXAMINATION: MR shoulder RT wo con DATE: 10/27/2022 08:38 INDICATION: Right shoulder pain. TECHNIQUE: Magnetic resonance imaging (MRI) of the right shoulder was performed without intravenous c ontrast. Sequences included axial PD-weighted FS FSE, coronal oblique PD-weighted FS FSE and T2-weigh taya FS FSE, and sagittal oblique T2-weighted FS FSE and T1-weighted FSE. COMPARISON: Right shoulder radiographs 09/28/2022 FINDINGS: Coracoacromial arch: The acromion undersurface is curved in morphology (type II). There is severe acromioclavicular joint osteoarthritis including inferiorly directed osteophytes. There is mild subacromial/subdeltoid bursit is. Rotator cuff: There is a full-thickness tear involving supraspinatus and infraspinatus tendons measuring 4.5 cm ant erior to posterior by 4.5 cm proximal to distal. Teres minor tendon is normal. There is moderate subs capularis tendinopathy. There is a interstitial tear of distal subscapularis tendon. There is volume loss of supraspinatus and infraspinatus muscle bellies. There is mild fatty atrophy of subscapularis and supraspinatus muscle bellies and moderate fatty atrophy of infraspinatus muscle belly. Biceps tendon and glenoid labrum: There is a partial tear of biceps tendon, a portion of which is medially displaced from bicipital derrick ove into the subscapularis tendon tear. There is a degenerative tear of superior labrum from 11:00 to 1:00 (SLAP tear). Fluid: There is a moderate-sized glenohumeral joint effusion with loose bodies. Bones/cartilage: There is partial-thickness cartilage loss of humeral head and glenoid. There is deep partial thicknes s cartilage loss of humeral head superiorly, consistent with cuff arthropathy. IMPRESSION: 1. Massive full-thickness rotator cuff tear with cuff arthropathy. 2. Moderate glenohumeral joint chondrosis. 3. Severe acromioclavicular joint osteoarthritis. 4. Partial tear of biceps tendon, a portion of which is medially displaced into the subscapularis ten don tear. 5. Moderate-sized glenohumeral joint effusion with loose bodies. Mild subacromial/subdeltoid bursitis . Reviewed, dictated and finalized at location A. TY MANAGER IMPRESSION: 1. Massive full-thickness rotator cuff tear with cuff arthropathy. 2. Moderate glenohumeral joint chondrosis. 3. Severe acromioclavicular joint osteoarthritis. 4. Partial tear of biceps tendon, a portion of which is medially displaced into the subscapularis tendon tear. 5. Moderate-sized glenohumeral joint effusion with loose bodies. Mild subacromi al/subdeltoid bursitis.
== END ==
PROVIDERS: PCP Family Medicine; Visit Provider Family Medicine
DX: M19.011 Primary osteoarthritis, right shoulder (principal); M25.411 Effusion, right shoulder; M24.011 Loose body in right shoulder
CPT/HCPCS: 73221

== ENCOUNTER → 2023-03-02 09:17 | Outpatient (CLI) | payer OTHER, SELFPAY ==
--- NOTE | ~2023-03-02 | XR_ITS ---
XR abdomen/kub 1V 03/02/2023 09:28 Indication: Kidney stones Procedure: KUB Comparison: Comparison to multiple prior studies sequentially, with oldest reviewed study dated 10/2020. Findings: Bowel gas pattern is nonobstructive. No abnormal calcifications. There is severe lumbar spo ndylosis. There are degenerative changes of the hips. Moderate colonic fecal loading. Impression: 1: No acute abdominal abnormality. No nephrolithiasis identified. Reviewed, dictated and finalized at location L. Impression: 1: No acute abdominal abnormality. No nephrolithiasis identified.
== END ==
PROVIDERS: PCP Family Medicine; Visit Provider Urology
DX: Z87.442 Personal history of urinary calculi (principal)
CPT/HCPCS: 74018

== ENCOUNTER → 2023-08-13 08:16 | Outpatient (CLI) | payer OTHER, SELFPAY ==
--- NOTE | ~2023-08-13 | CT_ITS ---
EXAMINATION: CT abdomen pelvis wo/w con DATE: 08/13/2023 08:59 INDICATION: Perinephric hematoma. TECHNIQUE: Computed tomography (CT) of the abdomen and pelvis was performed without and with intraven ous contrast using a total of 130 mL Omnipaque-350 intravenous contrast with a double-bolus technique for simultaneous opacification of the renal parenchyma and renal collecting system. Automated exposu re control and iterative reconstruction technique were employed. The dose-length product was 2304.31 mGy-cm. COMPARISON: CT abdomen and pelvis 12/15/2020 FINDINGS: The visualized portions of the lung bases demonstrate mild atelectasis. There is a 3 mm nodule in rig ht lower lobe, likely benign. No pleural effusion. The heart size is normal. There are coronary arter y calcifications. No pericardial effusion. The liver, gallbladder, spleen, pancreas, and adrenal glan ds are normal. There is cortical thinning of the kidneys. There are cysts in right kidney measuring u p to 12 mm. Right ureter is not well opacified distally, but is normal. There is fat stranding oncology rep olateral to left kidney, consistent with fat necrosis. There is no urolithiasis. Left ureter is well opacified and is normal. The bladder is not well distended. The prostate is mildly enlarged. There is diverticulosis of the colon without evidence of diverticulitis. The appendix is normal. There are no dilated loops of bowel. There are no pathologically enlarged lymph nodes. There is no free intraperi toneal fluid. There is calcified atherosclerosis of the aorta and many of the other arteries. There i s severe lumbar spondylosis. There are bridging endplate osteophytes at multiple levels in the spine, consistent with diffuse idiopathic skeletal hyperostosis (DISH). IMPRESSION: 1. Fat necrosis posterolateral to left kidney. 2. No urolithiasis. Reviewed, dictated and finalized at location A. TING CARD EDITOR
[2023-08-13 08:37] LABS: Estimated Glomerular Filt Rate > 60
== END ==
PROVIDERS: PCP Family Medicine; Visit Provider Urology
DX: S37.019A Minor contusion of unspecified kidney, initial encounter (principal); X58.XXXA Exposure to other specified factors, initial encounter
CPT/HCPCS: 74178; Q9967